=== PATIENT | male | born 1930 | race Caucasian/White ===

== ENCOUNTER 2017-04-23 11:35 | Inpatient (IN) | payer MEDICARE, MEDICAID ==
--- NOTE | 2017-04-23 12:30 | EDM.PDOC ---
ED HPI GENERAL MEDICAL PROBLEM - General Chief Complaint: Respiratory Problem Stated Complaint: MEDICAL VIA TRI Time Seen by Provider: 04/23/17 11:50 Source of Information: Reports: Patient, EMS, [facility] Records History Limitations: Reports: No Limitations - History of Present Illness INITIAL COMMENTS - FREE TEXT/NARRATIVE: 86-year-[facility] patient, full code, presents by EMS with tachycardia, intermittent hypoxia and shortness of breath. The patient himself is a poor historian and complains of no pain and thinks he is "doing okay" however the [facility] staff is concerned of increasing episodes of dyspnea, hypoxia and respiratory distress. He also has chronic atrial fibrillation but his rate is much faster than his baseline. No fevers or chills. They sent him in this morning when they thought he was looking dusky and mottled. His O2 saturations prior to leaving the [facility] are in the low to mid 80s on 3 L of nasal cannula oxygen. He looks much better on arrival to the emergency room with O2 saturations in the mid 90s on 2 L, his color looks good. He is not laboring. Onset: Unknown/Unsure Severity: Moderate Associated Symptoms: Reports: Shortness of Breath. Denies: Chest Pain, Cough, Fever/Chills, Nausea/Vomiting - Related Data Allergies Allergy/AdvReac Type Severity Reaction Status Date / Time No Known Allergies Allergy Verified 04/27/14 22:39 Home Meds: Home Meds Dorzolamide/Timolol [Cosopt 2%-0.5% Ophth Soln] 2 drop EYEBOTH BID 04/27/14 [ History] Acetaminophen [Tylenol] 650 mg PO ASDIRECTED PRN 04/23/17 [History] Albuterol/Ipratropium [DuoNeb 3.0-0.5 MG/3 ML] 1 vial INH QID 04/23/17 [History] Alum Hydrox/Mag Hydrox/Simeth [Maalox Advanced] 1 unit PO ASDIRECTED PRN [History] Aspirin 81 mg PO DAILY 04/23/17 [History] Bisacodyl [Biscolax] 10 mg RECTAL ASDIRECTED PRN 04/23/17 [History] Budesonide [Pulmicort] 1 vial INH BID 04/23/17 [History] Diltiazem HCl [Cardizem] 30 mg PO QID 04/23/17 [History] Magnesium Hydroxide [Milk of Magnesia] 30 mg PO ASDIRECTED PRN 04/23/17 [History ] Mirtazapine [Remeron] 7.5 mg PO DAILY 04/23/17 [History] Pantoprazole [ProTONIX] 40 mg PO DAILY 04/23/17 [History] Potassium Chloride [Klor-Con M20] 20 meq PO DAILY 04/23/17 [History] Sennosides [Senna] 8.6 mg PO BID 04/23/17 [History] Tamsulosin HCl 0.4 mg PO DAILY 04/23/17 [History] Warfarin [Coumadin] 2 mg PO ASDIRECTED 04/23/17 [History] Past Medical History - Past Health History Medical/Surgical History: Denies Medical/Surgical History HEENT History: Reports: Glaucoma Cardiovascular History: Reports: Afib, Heart Failure Respiratory History: Reports: COPD Gastrointestinal History: Reports: Chronic Constipation, GERD Genitourinary History: Reports: Prostate Disorder Psychiatric History: Reports: Dementia Social & Family History - Tobacco Use Smoking Status *Q: Unknown Ever Smoked Second Hand Smoke Exposure: No - Caffeine Use Caffeine Use: Reports: Coffee - Recreational Drug Use Recreational Drug Use: No ED ROS GENERAL - Review of Systems Review Of Systems: See Below Constitutional: Reports: Malaise, Weakness. Denies: Fever, Chills Respiratory: Reports: Shortness of Breath Cardiovascular: Reports: Other (Tachycardia). Denies: Chest Pain Endocrine: Reports: Fatigue GI/Abdominal: Denies: Abdominal Pain, Nausea, Vomiting Skin: Reports: Pallor Neurological: Reports: Other (Very hard of hearing) Psychiatric: Reports: No Symptoms ED EXAM, GENERAL - Physical Exam Exam: See Below Exam Limited By: No Limitations General Appearance: Alert, No Apparent Distress Eye Exam: Bilateral Eye: EOMI Head: Atraumatic Respiratory/Chest: Decreased Breath Sounds (Decreased breath sounds throughout, especially in the right base with crackles heard bilaterally but worse on the right) Cardiovascular: Tachycardia, Irregularly Irregular GI/Abdominal: Soft, Non-Tender Extremities: No: Pedal Edema Neurological: Alert, Oriented Psychiatric: Normal Affect, Normal Mood Skin Exam: Warm, Dry Course - Vital Signs Last Recorded V/S: Last Vital Signs Temp 97.3 F 04/23/17 15:38 Pulse 55 L 04/23/17 16:54 Resp 20 04/23/17 15:38 BP 95/67 04/23/17 16:54 Pulse Ox 92 L 04/23/17 15:38 - Orders/Labs/Meds Orders: Active Orders 24 hr Category Date Time Status Chest 1V Frontal [CR] Stat Exams 04/23/17 11:54 Taken Medication Orders Acetaminophen (Tylenol) 650 mg PO Q4H PRN PRN Reason: Pain (Mild 1-3)/fever Albuterol (Proventil Neb Soln) 2.5 mg NEB Q4H PRN PRN Reason: Shortness Of Breath/wheezing Last Admin: 04/23/17 17:58 Dose: 2.5 mg Albuterol/Ipratropium (Duoneb 3.0-0.5 Mg/3 Ml) 3 ml NEB QIDRT [facility] Last Admin: 04/23/17 14:41 Dose: 3 ml Aspirin (Aspirin) 81 mg PO DAILY [facility] Azithromycin (Zithromax) 500 mg PO DAILY [facility] Last Admin: 04/23/17 15:26 Dose: 500 mg Bisacodyl (Dulcolax) 5 mg PO DAILY PRN PRN Reason: Constipation Budesonide (Pulmicort) 0.5 mg INH BIDRT [facility] Diltiazem HCl (Cardizem) 30 mg PO QID [facility] Last Admin: 04/23/17 15:27 Dose: 30 mg Dorzolamide/Timolol (Cosopt 2%-0.5% Ophth Soln) 0 ml EYEBOTH BID [facility] Enoxaparin Sodium (Lovenox) 40 mg SUBCUT DAILY [facility] Sodium Chloride (Normal Saline) 1,000 mls @ 125 mls/hr IV ASDIRECTED [facility] Last Admin: 04/23/17 15:13 Dose: 125 mls/hr Ceftriaxone Sodium 1 gm/ (Sodium Chloride) 50 mls @ 100 mls/hr IV Q24H [facility] Magnesium Hydroxide (Milk Of Magnesia) 30 ml PO Q12H PRN PRN Reason: Constipation Mirtazapine (Remeron) 7.5 mg PO BEDTIME [facility] Ondansetron HCl (Zofran Odt) 4 mg PO Q6H PRN PRN Reason: Nausea able to take PO Pantoprazole Sodium (Protonix) 40 mg PO DAILY@0730 [facility] Polyethylene Glycol (Miralax) 17 gm PO DAILY PRN PRN Reason: Constipation Potassium Chloride (Klor-Con M20) 20 meq PO DAILY@0800 [facility] Prednisone (Prednisone) 20 mg PO BIDMEALS [facility] Senna (Senna) 8.6 mg PO BID [facility] Tamsulosin HCl (Flomax) 0.4 mg PO DAILY [facility] Labs: Laboratory Tests 04/23/17 04/23/17 04/23/17 Range/Units 11:55 11:55 11:55 WBC 18.5 H (4.5-11.0) K/uL RBC 3.47 L (4.30-5.90) M/uL Hgb 10.3 L (12.0-15.0) g/dL Hct 32.4 L (40.0-54.0) % MCV 93 (80-98) fL MCH 30 (27-31) pg MCHC 32 (32-36) % Plt Count 348 (150-400) K/uL Neut % (Auto) 89 H (36-66) % Lymph % (Auto) 5 L (24-44) % [place] % (Auto) 6 (2-6) % Eos % (Auto) 0 L (2-4) % Baso % (Auto) 0 (0-1) % PT (9.5-12.0) sec Puncture Site Rt brachial ABG pH 7.405 (7.350-7.450) ABG pCO2 31.1 L (35.0-42.0) mmHg ABG pO2 93.4 (75.0-100.0) mmHg ABG HCO3 19.1 L (22.0-26.0) mmol/L ABG Total CO2 17.7 L (23.0-27.0) mmol/L ABG O2 Saturation 97.3 (95.0-98.0) % ABG O2 Content 13.7 L (15.0-23.0) %vol ABG Base Excess -4.3 mm/L ABG Hemoglobin 10.3 L (13.5-18.0) g/dL ABG Oxyhemoglobin 94.5 % ABG Carboxyhemoglobin 2.5 H (0.0-1.6) % ABG Methemoglobin 0.4 % Fabricio Test Not performed O2 Delivery Device Room air Oxygen Flow Rate 2 L Sodium 138 L (140-148) mmol/L Potassium 5.1 (3.6-5.2) mmol/L Chloride 106 (100-108) mmol/L Carbon Dioxide 23 (21-32) mmol/L Anion Gap 14.1 H (5.0-14.0) mmol/L BUN 60 H D (7-18) mg/dL Creatinine 1.2 (0.8-1.3) mg/dL Est Cr Clr Drug Dosing 27.30 mL/min Estimated GFR (MDRD) 57 L (>60) Glucose 166 H (74-106) mg/dL Calcium 7.2 L (8.5-10.1) mg/dL Total Bilirubin 0.4 (0.2-1.0) mg/dL AST 13 L (15-37) U/L ALT 21 (12-78) U/L Alkaline Phosphatase 78 (46-116) U/L Troponin I < 0.017 (0.000-0.056) ng/mL Total Protein 5.2 L (6.4-8.2) g/dL Albumin 2.2 L (3.4-5.0) g/dL Globulin 3.0 (2.3-3.5) g/dL Albumin/Globulin Ratio 0.7 L (1.2-2.2) 04/23/17 Range/Units 13:27 WBC (4.5-11.0) K/uL RBC (4.30-5.90) M/uL Hgb (12.0-15.0) g/dL Hct (40.0-54.0) % MCV (80-98) fL MCH (27-31) pg MCHC (32-36) % Plt Count (150-400) K/uL Neut % (Auto) (36-66) % Lymph % (Auto) (24-44) % [place] % (Auto) (2-6) % Eos % (Auto) (2-4) % Baso % (Auto) (0-1) % PT > 100.0 H (9.5-12.0) sec Puncture Site ABG pH (7.350-7.450) ABG pCO2 (35.0-42.0) mmHg ABG pO2 (75.0-100.0) mmHg ABG HCO3 (22.0-26.0) mmol/L ABG Total CO2 (23.0-27.0) mmol/L ABG O2 Saturation (95.0-98.0) % ABG O2 Content (15.0-23.0) %vol ABG Base Excess mm/L ABG Hemoglobin (13.5-18.0) g/dL ABG Oxyhemoglobin % ABG Carboxyhemoglobin (0.0-1.6) % ABG Methemoglobin % Fabricio Test O2 Delivery Device Oxygen Flow Rate L Sodium (140-148) mmol/L Potassium (3.6-5.2) mmol/L Chloride (100-108) mmol/L Carbon Dioxide (21-32) mmol/L Anion Gap (5.0-14.0) mmol/L BUN (7-18) mg/dL Creatinine (0.8-1.3) mg/dL Est Cr Clr Drug Dosing mL/min Estimated GFR (MDRD) (>60) Glucose (74-106) mg/dL Calcium (8.5-10.1) mg/dL Total Bilirubin (0.2-1.0) mg/dL AST (15-37) U/L ALT (12-78) U/L Alkaline Phosphatase (46-116) U/L Troponin I (0.000-0.056) ng/mL Total Protein (6.4-8.2) g/dL Albumin (3.4-5.0) g/dL Globulin (2.3-3.5) g/dL Albumin/Globulin Ratio (1.2-2.2) Meds: Medications Generic Name Dose Route Start Last Admin Trade Name Freq PRN Reason Stop Dose Admin Acetaminophen 650 mg 04/23/17 14:15 Tylenol PO Q4H PRN Pain (Mild 1-3)/fever Albuterol 2.5 mg 04/23/17 14:15 04/23/17 17:58 Proventil Neb Soln NEB 2.5 mg Q4H PRN Administration Shortness Of Breath/wheezing Albuterol/Ipratropium 3 ml 04/23/17 15:00 04/23/17 14:41 Duoneb 3.0-0.5 Mg/3 Ml NEB 3 ml QIDRT [facility] Administration Aspirin 81 mg 04/24/17 09:00 Aspirin PO DAILY [facility] Azithromycin 500 mg 04/23/17 14:15 04/23/17 15:26 Zithromax PO 500 mg DAILY [facility] Administration Bisacodyl 5 mg 04/23/17 14:15 Dulcolax PO DAILY PRN Constipation Budesonide 0.5 mg 04/23/17 21:00 Pulmicort INH BIDRT [facility] Diltiazem HCl 30 mg 04/23/17 16:00 04/23/17 15:27 Cardizem PO 30 mg QID [facility] Administration Dorzolamide/Timolol 0 ml 04/23/17 21:00 Cosopt 2%-0.5% Ophth Soln EYEBOTH BID [facility] Enoxaparin Sodium 40 mg 04/24/17 09:00 Lovenox SUBCUT DAILY [facility] Sodium Chloride 1,000 mls @ 125 mls/hr 04/23/17 14:15 04/23/17 15:13 Normal Saline IV 125 mls/hr ASDIRECTED [facility] Administration Ceftriaxone Sodium 1 gm/ 50 mls @ 100 mls/hr 04/24/17 13:30 Sodium Chloride IV Q24H [facility] Magnesium Hydroxide 30 ml 04/23/17 14:15 Milk Of Magnesia PO Q12H PRN Constipation Mirtazapine 7.5 mg 04/23/17 21:00 Remeron PO BEDTIME [facility] Ondansetron HCl 4 mg 04/23/17 14:15 Zofran Odt PO Q6H PRN Nausea able to take PO Pantoprazole Sodium 40 mg 04/24/17 07:30 Protonix PO DAILY@0730 [facility] Polyethylene Glycol 17 gm 04/23/17 14:15 Miralax PO DAILY PRN Constipation Potassium Chloride 20 meq 04/24/17 08:00 Klor-Con M20 PO DAILY@0800 [facility] Prednisone 20 mg 04/24/17 08:00 Prednisone PO BIDMEALS [facility] Senna 8.6 mg 04/23/17 21:00 Senna PO BID [facility] Tamsulosin HCl 0.4 mg 04/24/17 09:00 Flomax PO DAILY [facility] Discontinued Medications Generic Name Dose Route Start Last Admin Trade Name Freq PRN Reason Stop Dose Admin Ceftriaxone Sodium 1 gm/ 50 mls @ 100 mls/hr 04/23/17 13:30 04/23/17 13:40 Sodium Chloride IV 100 mls/hr Q24H [facility] Administration Sodium Chloride 500 mls @ 999 mls/hr 04/23/17 13:30 04/23/17 13:31 Normal Saline IV 04/23/17 14:01 999 mls/hr ASDIRECTED [facility] Administration Methylprednisolone Sodium Succinate 125 mg 04/23/17 15:00 04/23/17 15:27 Solu-Medrol IVPUSH 04/23/17 15:01 125 mg ONETIME ONE Administration Phytonadione 5 mg 04/23/17 15:00 04/23/17 15:27 Aquamephyton PO 04/23/17 15:01 5 mg ONETIME ONE Administration - Re-Assessments/Exams Free Text/Narrative Re-Assessment/Exam: 04/23/17 12:35 quality assurance monitor showed atrial fibrillation with a rapid ventricular response. O2 saturations were 94-96% on 2 L of nasal cannula oxygen. ABGs were drawn on 2 L, CBC CMP and troponin were also obtained. A 1 view chest x-ray was obtained and showed chronic basilar infiltrates or scarring and cardiomegaly. Underlying infiltrates are very possible. 04/23/17 13:03 White count was 18,000, troponin was 0. Rest of his labs were generally unremarkable. ABGs showed a normal pH. There was no CO2 retention. I discussed his condition with Dr. Pineda, the hospitalist service and evaluate the patient for admission for a COPD exacerbation. Departure - Departure Time of Disposition: 14:26 Disposition: Admitted As Inpatient 64 Condition: Fair Clinical Impression: COPD with exacerbation - Discharge Information - My Orders Last 24 Hours: My Active Orders 04/23/17 11:54 Chest 1V Frontal [CR] Stat - Assessment/Plan Last 24 Hours: My Active Orders 04/23/17 11:54 Chest 1V Frontal [CR] Stat
[2017-04-23] MEDS ORDERED: Sodium Chloride 0.9% 500 ML IV SCH (13:30)
[2017-04-23] MEDS ORDERED: cefTRIAXone 1 GM in Sodium Chloride 0.9% 50 ML IV SCH (13:30)
--- NOTE | 2017-04-23 13:51 | PCM.HP ---
H&P History of Present Illness - General Date of Service: 04/23/17 Admit Problem/Dx: Admission Diagnosis/Problem Admission Diagnosis/Problem Bronchitis Source of Information: Patient, Shelter Records, Provider History Limitations: Reports: No Limitations - History of Present Illness Initial Comments - Free Text/Narative: Gómez presents to the emergency room today from a local half-way. [facility] this morning noted that he was skipped, tachycardic, hypotensive and appeared cyanotic. An ambulance was summoned and was brought to the emergency room for evaluation. He tells me that he feels well now and does not have any concerns at this time. He recalls not feeling very good this morning but cannot be more specific than that he did not feel good. He does recall that his breathing was short at the time. He does admit that he's been doing some coughing and has a loose but nonproductive cough. He has not had any difficulties with chest pain or abdominal pain. Appetite has been decreased but this is a chronic issue. Bowels have been moving normally. He doesn't think he' s been having any fevers. He reports his strength is at baseline which is weak and has a difficult time getting around. He was recently treated for suspected pneumonia with levofloxacin and 5 days of prednisone. Workup in the emergency room revealed initially a tachycardia which appears to be atrial fibrillation has now slowed down to the upper limits of normal. His hypoxia has corrected with 2 L of oxygen which he normally uses at home. White count is elevated. Chest x-ray is difficult to interpret but bronchitis is suspected. He will be admitted for further management. - Related Data Allergies/Adverse Reactions: Allergies Allergy/AdvReac Type Severity Reaction Status Date / Time No Known Allergies Allergy Verified 04/27/14 22:39 Home Medications: Home Meds Dorzolamide/Timolol [Cosopt 2%-0.5% Ophth Soln] 2 drop EYEBOTH BID 04/27/14 [ History] Acetaminophen [Tylenol] 650 mg PO ASDIRECTED PRN 04/23/17 [History] Albuterol/Ipratropium [DuoNeb 3.0-0.5 MG/3 ML] 1 vial INH QID 04/23/17 [History] Alum Hydrox/Mag Hydrox/Simeth [Maalox Advanced] 1 unit PO ASDIRECTED PRN [History] Aspirin 81 mg PO DAILY 04/23/17 [History] Bisacodyl [Biscolax] 10 mg RECTAL ASDIRECTED PRN 04/23/17 [History] Budesonide [Pulmicort] 1 vial INH BID 04/23/17 [History] Diltiazem HCl [Cardizem] 30 mg PO QID 04/23/17 [History] Magnesium Hydroxide [Milk of Magnesia] 30 mg PO ASDIRECTED PRN 04/23/17 [History ] Mirtazapine [Remeron] 7.5 mg PO DAILY 04/23/17 [History] Pantoprazole [ProTONIX] 40 mg PO DAILY 04/23/17 [History] Potassium Chloride [Klor-Con M20] 20 meq PO DAILY 04/23/17 [History] Sennosides [Senna] 8.6 mg PO BID 04/23/17 [History] Tamsulosin HCl 0.4 mg PO DAILY 04/23/17 [History] Warfarin [Coumadin] 2 mg PO ASDIRECTED 04/23/17 [History] Past Medical History - Past Health History Medical/Surgical History: Denies Medical/Surgical History HEENT History: Reports: Glaucoma Cardiovascular History: Reports: Afib, Heart Failure Respiratory History: Reports: COPD Gastrointestinal History: Reports: Chronic Constipation, GERD Genitourinary History: Reports: Prostate Disorder Psychiatric History: Reports: Dementia Social & Family History - Family History Cardiac: Denies: CAD - Tobacco Use Smoking Status *Q: Unknown Ever Smoked Second Hand Smoke Exposure: No - Caffeine Use Caffeine Use: Reports: Coffee - Recreational Drug Use Recreational Drug Use: No H&P Review of Systems - Review of Systems: Review Of Systems: See Below Free Text/Narrative: A complete 12 point review of systems was obtained. Pertinent positives and negatives are noted in the history of present illness. All other systems were reviewed and were negative except as noted. Exam - Exam Exam: See Below - Vital Signs Vital Signs: Last Vital Signs Temp 36.0 C 04/23/17 11:47 Pulse 140 H 04/23/17 11:47 Resp 16 04/23/17 11:47 BP 96/65 04/23/17 11:47 Pulse Ox 94 L 04/23/17 11:47 Weight: 49.442 kg - Exam Quality Assessment: Supplemental Oxygen General: Alert, Cooperative, Mild Distress, Other (Very thin and malnourished). No: Oriented HEENT: Conjunctiva Clear. No: Mucosa Moist & [place] (dry), Scleral Icterus Neck: Supple, Trachea Midline. No: Lymphadenopathy, Thyromegaly Lungs: Decreased Breath Sounds (Both bases), Rales (Rare right lung base), Other (Poor air movement). No: Wheezing Cardiovascular: Irregular Rhythm, Tachycardia. No: Systolic Murmur GI/Abdominal Exam: Normal Bowel Sounds, Soft, Non-Tender, No Distention, No Mass Back Exam: Normal Inspection, Full Range of Motion Extremities: No Pedal Edema. No: Increased Warmth Peripheral Pulses: 2+: Dorsalis Pedis (L), Dorsalis Pedis (R) Skin: Warm, Dry, Intact Neuro Extensive - Mental Status: Alert, Nl Response to Commands. No: Oriented x3 Neuro Extensive - Motor, Sensory, Reflexes: CN II-XII Intact. No: Dysarthria, Abnormal Motor, Tremor Psychiatric: Alert, Normal Affect - Patient Data Lab Results Last 24 hrs: Laboratory Results - last 24 hr 04/23/17 04/23/17 04/23/17 Range/Units 11:55 11:55 11:55 WBC 18.5 H (4.5-11.0) K/uL RBC 3.47 L (4.30-5.90) M/uL Hgb 10.3 L (12.0-15.0) g/dL Hct 32.4 L (40.0-54.0) % MCV 93 (80-98) fL MCH 30 (27-31) pg MCHC 32 (32-36) % Plt Count 348 (150-400) K/uL Neut % (Auto) 89 H (36-66) % Lymph % (Auto) 5 L (24-44) % [place] % (Auto) 6 (2-6) % Eos % (Auto) 0 L (2-4) % Baso % (Auto) 0 (0-1) % Puncture Site Rt brachial ABG pH 7.405 (7.350-7.450) ABG pCO2 31.1 L (35.0-42.0) mmHg ABG pO2 93.4 (75.0-100.0) mmHg ABG HCO3 19.1 L (22.0-26.0) mmol/L ABG Total CO2 17.7 L (23.0-27.0) mmol/L ABG O2 Saturation 97.3 (95.0-98.0) % ABG O2 Content 13.7 L (15.0-23.0) %vol ABG Base Excess -4.3 mm/L ABG Hemoglobin 10.3 L (13.5-18.0) g/dL ABG Oxyhemoglobin 94.5 % ABG Carboxyhemoglobin 2.5 H (0.0-1.6) % ABG Methemoglobin 0.4 % Fabricio Test Not performed O2 Delivery Device Room air Oxygen Flow Rate 2 L Sodium 138 L (140-148) mmol/L Potassium 5.1 (3.6-5.2) mmol/L Chloride 106 (100-108) mmol/L Carbon Dioxide 23 (21-32) mmol/L Anion Gap 14.1 H (5.0-14.0) mmol/L BUN 60 H D (7-18) mg/dL Creatinine 1.2 (0.8-1.3) mg/dL Est Cr Clr Drug Dosing 27.30 mL/min Estimated GFR (MDRD) 57 L (>60) Glucose 166 H (74-106) mg/dL Calcium 7.2 L (8.5-10.1) mg/dL Total Bilirubin 0.4 (0.2-1.0) mg/dL AST 13 L (15-37) U/L ALT 21 (12-78) U/L Alkaline Phosphatase 78 (46-116) U/L Troponin I < 0.017 (0.000-0.056) ng/mL Total Protein 5.2 L (6.4-8.2) g/dL Albumin 2.2 L (3.4-5.0) g/dL Globulin 3.0 (2.3-3.5) g/dL Albumin/Globulin Ratio 0.7 L (1.2-2.2) Result Diagrams: 04/23/17 11:55 04/23/17 11:55 Imaging Impressions Last 24 hrs: Chest x-ray - images personally reviewed and compared to chest x-ray from February 2017 - he appears to have 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 He has a hiatal hernia on the left. No definite mass or infiltrate. No effusion. *Q Meaningful Use (ADM) - VTE *Q VTE Criteria *Q: - VTE Risk Assess *Q Each Risk Factor Represents 1 Point: Congestive Heart Failure, Less than 1 Month , Serious Lung Disease Including Pneumonia, Less than 1 Month, Abnormal Pulmonary Function (COPD) Total Score 1 Point Risk Factors: 3 Each Risk Factor Represents 2 Points: None Total Score 2 Point Risk Factors: 0 Each Risk Factor Represents 3 Points: Age 75 Years or Greater Total Score 3 Point Risk Factors: 3 Each Risk Factor Represents 5 Points: None Total Score 5 Point Risk Factors: 0 Venous Thromboembolism Risk Factor Score *Q: 6 - Stroke *Q Stroke Criteria *Q: - AMI *Q AMI Criteria *Q: - Problem List (1) Acute bronchitis SNOMED Code(s): 10663568 ICD Code: J20.9 - ACUTE BRONCHITIS, UNSPECIFIED Status: Acute Current Visit: Yes Qualifiers: Bronchitis organism: unspecified organism Qualified Code(s): J20.9 - Acute bronchitis, unspecified (2) COPD with exacerbation SNOMED Code(s): 535361350, 745434311 ICD Code: J44.1 - CHRONIC OBSTRUCTIVE PULMONARY DISEASE W (ACUTE) EXACERBATION Status: Acute Current Visit: Yes (3) Atrial fibrillation with rapid ventricular response SNOMED Code(s): 887815099305178 ICD Code: I48.91 - UNSPECIFIED ATRIAL FIBRILLATION Status: Acute Current Visit: Yes (4) Stage III chronic kidney disease SNOMED Code(s): 569772038 ICD Code: N18.3 - CHRONIC KIDNEY DISEASE, STAGE 3 (MODERATE) Status: Acute Current Visit: Yes (5) Alzheimer's dementia without behavioral disturbance SNOMED Code(s): 61274899 ICD Code: G30.9 - ALZHEIMER'S DISEASE, UNSPECIFIED; F02.80 - DEMENTIA IN OTH DISEASES CLASSD ELSWHR W/O BEHAVRL DISTURB Status: Acute Current Visit: Yes Qualifiers: Alzheimer's disease onset: late-onset Qualified Code(s): G30.1 - Alzheimer' s disease with late onset; F02.80 - Dementia in other diseases classified elsewhere without behavioral disturbance (6) Supratherapeutic INR SNOMED Code(s): 037004322, 483258053 ICD Code: R79.1 - ABNORMAL COAGULATION PROFILE Status: Acute Current Visit: Yes Problem List Initiated/Reviewed/Updated: Yes Orders Last 24hrs: Active Orders 24 hr Category Date Time Status Patient Status Manage Transfer [TRANSFER] Routine ADT 04/23/17 13:34 Ordered Chest 1V Frontal [CR] Stat Exams 04/23/17 11:54 Taken INR,PT,PROTHROMBIN TIME [COAG] Urgent Lab 04/23/17 13:27 Ordered Sodium Chloride 0.9% [Normal Saline] 500 ml Med 04/23/17 13:30 Active IV ASDIRECTED cefTRIAXone [Rocephin] 1 gm Med 04/23/17 13:30 Active Sodium Chloride 0.9% [Normal Saline] 50 ml IV Q24H Resuscitation Status Routine Resus Stat 04/23/17 13:35 Ordered Medication Orders Ceftriaxone Sodium 1 gm/ (Sodium Chloride) 50 mls @ 100 mls/hr IV Q24H HELIO Last Admin: 04/23/17 13:40 Dose: 100 mls/hr Sodium Chloride (Normal Saline) 500 mls @ 999 mls/hr IV ASDIRECTED HELIO Stop: 04/23/17 14:01 Last Admin: 04/23/17 13:31 Dose: 999 mls/hr Assessment/Plan Comment:: Assessment and plan - Probable acute bronchitis with acute COPD exacerbation - uses continuous oxygen at home. No CO2 retention on blood gases. Poor air movement, productive cough and increased shortness of breath from baseline. He has had recent treatment with levofloxacin. No respiratory distress at this time. -Ceftriaxone and azithromycin -Solu-Medrol 1 today -Twice daily prednisone starting tomorrow -Scheduled and as needed nebulizers -Continue Pulmicort -Supplement oxygen Atrial fibrillation with rapid ventricular response - rate has slowed nicely in the emergency room without intervention. Suspect worsening because of missed morning dose of medication and pulmonary disease. -Continue 4 times a day diltiazem -Cardiac monitoring Super therapeutic INR - significantly elevated level and unable to calculate INR. -5 mg of by mouth vitamin K -Repeat INR in the morning -Hold warfarin Stage III chronic kidney disease - kidney function at baseline at this time. Alzheimer's dementia without behavioral disturbance - daughter reports intermittent difficulties with forgetfulness but in general does pretty well yet. -Melatonin at bedtime Maintenance issues - - DVT prophylaxis - warfarin - GI prophylaxis - PPI - Nutrition - low sodium diet - Mejia catheter - not indicated CODE STATUS - discussed with his daughter Mariella who is his decision maker. She requests that no CPR be done but a short period of intubation would be okay for reversible conditions. Admission justification - This patient will be admitted for inpatient services and is medically appropriate meeting medical necessity for inpatient admission as outlined in my documentation. I reasonably expect the patient will require inpatient services that span a period time over 2 midnights. I reasonably expect this patient to be discharged or transferred within 96 hours after admission to the [facility]. Disposition - anticipate discharge back to the half-way after the hospital stay Primary care physician - Dr Aron Pineda M.D.
[2017-04-23] MEDS ORDERED: Polyethylene Glycol 3350 Powder 17 GM Packet PO PRN (14:15)
[2017-04-23] MEDS ORDERED: Acetaminophen 325 MG Tab PO PRN (14:15)
[2017-04-23] MEDS ORDERED: Ondansetron 4 MG Tab.DIS PO PRN (14:15)
[2017-04-23] MEDS ORDERED: Bisacodyl 5 MG Tab PO PRN (14:15)
[2017-04-23] MEDS: Albuterol/Ipratropium 3.0-0.5 MG/3 ML Neb Soln NEB SCH ×2 (14:41→21:34)
[2017-04-23] MEDS ORDERED: Phytonadione ORAL 5mg/5ml Soln Simple Syrup U/D PO ONE (15:00)
[2017-04-23] MEDS ORDERED: methylPREDNISolone Sodium Succinate 125 MG/2 ML SDV IVPUSH ONE (15:00)
[2017-04-23] MEDS: Sodium Chloride 0.9% 1,000 ML IV SCH ×2 (15:13→22:39)
[2017-04-23] MEDS: Azithromycin 250 MG Tab PO SCH (15:26)
[2017-04-23] MEDS: Diltiazem IR 30 MG Tab PO SCH ×2 (15:27→21:35)
[2017-04-23] MEDS: Albuterol 0.083% 2.5 MG/3 ML Neb Soln NEB PRN (17:58)
[2017-04-23] MEDS: Dorzolamide/Timolol 2%-0.5% Ophth Soln 10 ML Bottle EYEBOTH SCH (21:34)
[2017-04-23] MEDS: Budesonide 0.5 MG/2 ML Neb Susp INH SCH (21:34)
[2017-04-23] MEDS: Mirtazapine 15 MG Tab PO SCH (21:35)
[2017-04-23] MEDS: Sennosides 8.6 MG Tab PO SCH (21:35)
[2017-04-24] MEDS: Albuterol 0.083% 2.5 MG/3 ML Neb Soln NEB PRN (03:32)
[2017-04-24] MEDS ORDERED: Sodium Chloride 0.9% 500 ML IV ONE ×4 (03:45→21:48)
[2017-04-24] MEDS: Diltiazem IR 30 MG Tab PO SCH ×2 (05:24→14:35)
[2017-04-24] MEDS ORDERED: Phytonadione 5 MG in Sodium Chloride 0.9% 50 ML IV ONE ×2 (06:30→08:00)
[2017-04-24] MEDS: Budesonide 0.5 MG/2 ML Neb Susp INH SCH ×2 (07:23→20:56)
[2017-04-24] MEDS: Albuterol/Ipratropium 3.0-0.5 MG/3 ML Neb Soln NEB SCH ×4 (07:23→20:52)
[2017-04-24] MEDS: Sodium Chloride 0.9% 1,000 ML IV SCH ×2 (07:48→18:44)
[2017-04-24] MEDS: predniSONE 20 MG Tab PO SCH ×2 (08:13→16:42)
[2017-04-24] MEDS: Potassium Chloride 20 MEQ Tab.ER PO SCH (08:13)
[2017-04-24] MEDS: Pantoprazole 40 MG Tab.CR PO SCH (08:13)
[2017-04-24] MEDS: Tamsulosin 0.4 MG Cap.ER PO SCH (08:14)
[2017-04-24] MEDS: Aspirin 81 MG Tab.Chew PO SCH (08:14)
[2017-04-24] MEDS: Azithromycin 250 MG Tab PO SCH (08:14)
[2017-04-24] MEDS: Dorzolamide/Timolol 2%-0.5% Ophth Soln 10 ML Bottle EYEBOTH SCH ×2 (08:16→20:52)
[2017-04-24] MEDS ORDERED: Enoxaparin 40 MG/0.4 ML Syringe SUBCUT SCH (09:00)
--- NOTE | 2017-04-24 09:18 | CR ---
Chest 1V Frontal INDICATION: hypoxia FINDINGS: Comparison 04/30/2014. Heart size within normal limits for portable AP technique. Hyperinfla tion. Prominence of the central pulmonary arteries. Patchy infiltrate in the left lower lobe concerni ng for pneumonia. Stable blunting of the costophrenic angles. Recommend follow-up chest x-ray in 4-6 weeks.
[2017-04-24] MEDS: Sennosides 8.6 MG Tab PO SCH ×2 (10:40→20:53)
--- NOTE | 2017-04-24 13:14 | PCM.PN ---
- General Info Date of Service: 04/24/17 Functional Status: Reports: Pain Controlled, Tolerating Diet, Ambulating - Review of Systems General: Reports: Weakness. Denies: Fever, Chills Pulmonary: Reports: Shortness of Breath, Cough. Denies: Pleuritic Chest Pain, Hemoptysis Cardiovascular: Reports: Dyspnea on Exertion Gastrointestinal: Reports: No Symptoms Psychiatric: Reports: Confusion Systems Review Comment:: Mr. Truong has done fairly well from a respiratory standpoint since admission, saturations have been adequate. He has had some intermittent difficulty with hypotension, likely secondary to medication effect. There is no evidence of active sepsis at the present time. Heart rate has been under better control since admission and he has remained afebrile. - Patient Data Vitals - Most Recent: Last Vital Signs Temp 96.8 F 04/24/17 11:00 Pulse 108 H 04/24/17 11:00 Resp 18 04/24/17 11:00 BP 83/52 L 04/24/17 11:00 Pulse Ox 96 04/24/17 11:00 Weight - Most Recent: 115 lb 8.003 oz I&O - Last 24 Hours: Intake & Output 04/23/17 04/24/17 04/24/17 22:59 06:59 14:59 Intake Total 1075 1820 360 Output Total 350 700 300 Balance 725 1120 60 Lab Results Last 24 Hours: Laboratory Results - last 24 hr 04/24/17 04/24/17 04/24/17 Range/Units 05:11 05:11 05:53 WBC 15.6 H (4.5-11.0) K/uL RBC 3.62 L (4.30-5.90) M/uL Hgb 10.4 L (12.0-15.0) g/dL Hct 34.1 L (40.0-54.0) % MCV 94 (80-98) fL MCH 29 (27-31) pg MCHC 31 L (32-36) % Plt Count 356 (150-400) K/uL PT > 100.0 H (9.5-12.0) sec INR (0.80-1.20) Sodium 140 (140-148) mmol/L Potassium 4.8 (3.6-5.2) mmol/L Chloride 109 H (100-108) mmol/L Carbon Dioxide 23 (21-32) mmol/L Anion Gap 12.8 (5.0-14.0) mmol/L BUN 54 H (7-18) mg/dL Creatinine 1.2 (0.8-1.3) mg/dL Est Cr Clr Drug Dosing 31.53 mL/min Estimated GFR (MDRD) 57 L (>60) Glucose 162 H (74-106) mg/dL Calcium 7.6 L (8.5-10.1) mg/dL Med Orders - Current: Current Medications Acetaminophen (Tylenol) 650 mg PO Q4H PRN PRN Reason: Pain (Mild 1-3)/fever Albuterol (Proventil Neb Soln) 2.5 mg NEB Q4H PRN PRN Reason: Shortness Of Breath/wheezing Last Admin: 04/24/17 03:32 Dose: 2.5 mg Albuterol/Ipratropium (Duoneb 3.0-0.5 Mg/3 Ml) 3 ml NEB QIDRT [facility] Last Admin: 04/24/17 10:49 Dose: 3 ml Aspirin (Aspirin) 81 mg PO DAILY [facility] Last Admin: 04/24/17 08:14 Dose: 81 mg Azithromycin (Zithromax) 500 mg PO DAILY [facility] Last Admin: 04/24/17 08:14 Dose: 500 mg Bisacodyl (Dulcolax) 5 mg PO DAILY PRN PRN Reason: Constipation Budesonide (Pulmicort) 0.5 mg INH BIDRT [facility] Last Admin: 04/24/17 07:23 Dose: 0.5 mg Dorzolamide/Timolol (Cosopt 2%-0.5% Ophth Soln) 0 ml EYEBOTH BID [facility] Last Admin: 04/24/17 08:16 Dose: 1 drop Enoxaparin Sodium (Lovenox) 40 mg SUBCUT DAILY [facility] Last Admin: 04/24/17 10:40 Dose: 40 mg Sodium Chloride (Normal Saline) 1,000 mls @ 125 mls/hr IV ASDIRECTED [facility] Last Admin: 04/24/17 07:48 Dose: 125 mls/hr Ceftriaxone Sodium 1 gm/ (Sodium Chloride) 50 mls @ 100 mls/hr IV Q24H [facility] Sodium Chloride (Normal Saline) 500 mls @ 250 mls/hr IV .BOLUS ONE Stop: 04/24/17 14:10 Magnesium Hydroxide (Milk Of Magnesia) 30 ml PO Q12H PRN PRN Reason: Constipation Mirtazapine (Remeron) 7.5 mg PO BEDTIME [facility] Last Admin: 04/23/17 21:35 Dose: 7.5 mg Ondansetron HCl (Zofran Odt) 4 mg PO Q6H PRN PRN Reason: Nausea able to take PO Pantoprazole Sodium (Protonix) 40 mg PO DAILY@0730 [facility] Last Admin: 04/24/17 08:13 Dose: 40 mg Polyethylene Glycol (Miralax) 17 gm PO DAILY PRN PRN Reason: Constipation Potassium Chloride (Klor-Con M20) 20 meq PO DAILY@0800 [facility] Last Admin: 04/24/17 08:13 Dose: 20 meq Prednisone (Prednisone) 20 mg PO BIDMEALS [facility] Last Admin: 04/24/17 08:13 Dose: 20 mg Senna (Senna) 8.6 mg PO BID [facility] Last Admin: 04/24/17 10:40 Dose: 8.6 mg Tamsulosin HCl (Flomax) 0.4 mg PO DAILY [facility] Last Admin: 04/24/17 08:14 Dose: 0.4 mg Discontinued Medications Diltiazem HCl (Cardizem) 30 mg PO QID [facility] Last Admin: 04/24/17 05:24 Dose: 30 mg Ceftriaxone Sodium 1 gm/ (Sodium Chloride) 50 mls @ 100 mls/hr IV Q24H [facility] Last Admin: 04/23/17 13:40 Dose: 100 mls/hr Sodium Chloride (Normal Saline) 500 mls @ 999 mls/hr IV ASDIRECTED [facility] Stop: 04/23/17 14:01 Last Admin: 04/23/17 13:31 Dose: 999 mls/hr Sodium Chloride (Normal Saline) 500 mls @ 500 mls/hr IV .BOLUS ONE Stop: 04/24/17 04:44 Last Admin: 04/24/17 03:45 Dose: 500 mls/hr Phytonadione 5 mg/ Sodium (Chloride) 50.5 mls @ 100 mls/hr IV NOW ONE Stop: 04/24/17 07:00 Phytonadione 5 mg/ Sodium (Chloride) 50.5 mls @ 100 mls/hr IV ONETIME ONE Stop: 04/24/17 08:30 Last Admin: 04/24/17 07:48 Dose: 100 mls/hr Methylprednisolone Sodium Succinate (Solu-Medrol) 125 mg IVPUSH ONETIME ONE Stop: 04/23/17 15:01 Last Admin: 04/23/17 15:27 Dose: 125 mg Phytonadione (Aquamephyton) 5 mg PO ONETIME ONE Stop: 04/23/17 15:01 Last Admin: 04/23/17 15:27 Dose: 5 mg - Exam General: Alert, Cooperative, Mild Distress Lungs: Decreased Breath Sounds. No: Crackles, Rales, Rhonchi, Rub, Wheezing Cardiovascular: Regular Rate, No Murmurs, Irregular Rhythm GI/Abdominal Exam: Normal Bowel Sounds, Soft, Non-Tender, No Distention Extremities: Non-Tender, No Pedal Edema Skin: Warm, Dry, Intact - Problem List Review Problem List Initiated/Reviewed/Updated: Yes - My Orders Last 24 Hours: My Active Orders 04/24/17 12:11 Sodium Chloride 0.9% [Normal Saline] 500 ml IV .BOLUS 04/25/17 05:00 BASIC METABOLIC PANEL,BMP [CHEM] Timed CBC WITH AUTO DIFF [HEME] Timed MAGNESIUM [CHEM] Timed - Plan Plan:: Assessment and plan - Probable acute bronchitis with acute COPD exacerbation - uses continuous oxygen at home. Improved from admission, saturations have been adequate with current supplemental oxygen -Ceftriaxone and azithromycin -Twice daily prednisone -Scheduled and as needed nebulizers -Continue Pulmicort -Supplement oxygen Atrial fibrillation with rapid ventricular response - rate control has been adequate but will need to hold diltiazem because of hypotension. -Hold diltiazem -Cardiac monitoring Hypotension-likely that at least some component of this is secondary to medical therapy. -IV fluid bolus -Hold diltiazem -Continue IV fluids until tomorrow a.m. Super therapeutic INR - INR remains elevated today -5 mg of by mouth vitamin K -Repeat INR in the morning -Hold warfarin Stage III chronic kidney disease - kidney function at baseline at this time. Alzheimer's dementia without behavioral disturbance - daughter reports intermittent difficulties with forgetfulness but in general does pretty well yet. -Melatonin at bedtime Maintenance issues - - DVT prophylaxis - warfarin - GI prophylaxis - PPI - Nutrition - low sodium diet - Mejia catheter - not indicated CODE STATUS - discussed with his daughter Mariella who is his decision maker. She requests that no CPR be done but a short period of intubation would be okay for reversible conditions. Admission justification - This patient will be admitted for inpatient services and is medically appropriate meeting medical necessity for inpatient admission as outlined in my documentation. I reasonably expect the patient will require inpatient services that span a period time over 2 midnights. I reasonably expect this patient to be discharged or transferred within 96 hours after admission to the [facility]. Disposition - anticipate discharge back to the half-way after the hospital stay Primary care physician - Dr Sharp
[2017-04-24] MEDS: Magnesium Hydroxide 400 MG/5 ML Susp 30 ML Cup PO PRN (13:59)
[2017-04-24] MEDS: cefTRIAXone 1 GM in Sodium Chloride 0.9% 50 ML IV SCH (13:59)
[2017-04-24] MEDS ORDERED: Haloperidol Lactate 5 MG/ML SDV IVPUSH PRN (18:07)
[2017-04-24] MEDS: Divalproex Sodium Delayed-Release 250 MG Tab.CR PO SCH (19:18)
[2017-04-24] MEDS ORDERED: Digoxin 500 MCG/2 ML Amp IVPUSH STA (19:36)
[2017-04-24] MEDS: Mirtazapine 15 MG Tab PO SCH (20:53)
[2017-04-24] MEDS: Melatonin 3 MG Tab PO SCH (20:56)
[2017-04-25] MEDS ORDERED: Sodium Chloride 0.9% 500 ML IV ONE (03:19)
[2017-04-25] MEDS: Sodium Chloride 0.9% 1,000 ML IV SCH (07:15)
[2017-04-25] MEDS: Budesonide 0.5 MG/2 ML Neb Susp INH SCH ×3 (07:19→20:58)
[2017-04-25] MEDS: Albuterol/Ipratropium 3.0-0.5 MG/3 ML Neb Soln NEB SCH ×5 (07:19→20:58)
[2017-04-25] MEDS: Pantoprazole 40 MG Tab.CR PO SCH (08:21)
[2017-04-25] MEDS: Azithromycin 250 MG Tab PO SCH (08:21)
[2017-04-25] MEDS: Divalproex Sodium Delayed-Release 250 MG Tab.CR PO SCH ×2 (08:21→17:16)
[2017-04-25] MEDS: Potassium Chloride 20 MEQ Tab.ER PO SCH (08:22)
[2017-04-25] MEDS: Tamsulosin 0.4 MG Cap.ER PO SCH (08:22)
[2017-04-25] MEDS: predniSONE 20 MG Tab PO SCH (08:22)
[2017-04-25] MEDS: Sennosides 8.6 MG Tab PO SCH ×2 (08:22→20:20)
[2017-04-25] MEDS: Aspirin 81 MG Tab.Chew PO SCH (08:23)
[2017-04-25] MEDS: Dorzolamide/Timolol 2%-0.5% Ophth Soln 10 ML Bottle EYEBOTH SCH ×2 (08:23→20:15)
[2017-04-25] MEDS ORDERED: Warfarin 5 MG Tab PO ONE (10:00)
[2017-04-25] MEDS ORDERED: Sodium Chloride 0.9% 250 ML IV ONE (13:46)
[2017-04-25] MEDS ORDERED: Digoxin 500 MCG/2 ML Amp IVPUSH ONE (14:30)
--- NOTE | 2017-04-25 14:34 | PCM.PN ---
- General Info Date of Service: 04/25/17 Functional Status: Reports: Tolerating Diet - Review of Systems General: Reports: Weakness. Denies: Fever, Chills Pulmonary: Reports: No Symptoms Cardiovascular: Reports: No Symptoms Gastrointestinal: Reports: No Symptoms Systems Review Comment:: Mr. Truong has continued to have intermittent episodes of hypotension over the past 24 hours, low blood pressure has responded to IV fluid boluses. Heart rate has been under better control, he was given IV dig yesterday and again this afternoon. He reports that he feels well and denies significant symptoms of shortness of breath. He has remained afebrile, white count is elevated but this is likely secondary to glucocorticoid therapy. - Patient Data Vitals - Most Recent: Last Vital Signs Temp 97 F 04/25/17 11:17 Pulse 57 L 04/25/17 11:17 Resp 16 04/25/17 11:17 BP 95/52 L 04/25/17 11:17 Pulse Ox 98 04/25/17 07:41 Weight - Most Recent: 115 lb 8.003 oz I&O - Last 24 Hours: Intake & Output 04/24/17 04/25/17 04/25/17 22:59 06:59 14:59 Intake Total 1625 1970 120 Output Total 200 300 Balance 1425 1970 -180 Lab Results Last 24 Hours: Laboratory Results - last 24 hr 04/25/17 04/25/17 04/25/17 Range/Units 04:50 04:50 04:50 WBC 19.8 H (4.5-11.0) K/uL RBC 3.41 L (4.30-5.90) M/uL Hgb 10.1 L (12.0-15.0) g/dL Hct 32.2 L (40.0-54.0) % MCV 94 (80-98) fL MCH 30 (27-31) pg MCHC 31 L (32-36) % Plt Count 308 (150-400) K/uL Neut % (Auto) 88 H (36-66) % Lymph % (Auto) 5 L (24-44) % [place] % (Auto) 7 H (2-6) % Eos % (Auto) 0 L (2-4) % Baso % (Auto) 0 (0-1) % PT 13.4 H (9.5-12.0) sec INR 1.24 H (0.80-1.20) Sodium 138 L (140-148) mmol/L Potassium 5.0 (3.6-5.2) mmol/L Chloride 108 (100-108) mmol/L Carbon Dioxide 24 (21-32) mmol/L Anion Gap 11.0 (5.0-14.0) mmol/L BUN 45 H (7-18) mg/dL Creatinine 0.9 (0.8-1.3) mg/dL Est Cr Clr Drug Dosing 42.04 mL/min Estimated GFR (MDRD) > 60 (>60) Glucose 153 H (74-106) mg/dL Calcium 7.3 L (8.5-10.1) mg/dL Magnesium 2.4 (1.8-2.4) mg/dL Med Orders - Current: Current Medications Acetaminophen (Tylenol) 650 mg PO Q4H PRN PRN Reason: Pain (Mild 1-3)/fever Albuterol (Proventil Neb Soln) 2.5 mg NEB Q4H PRN PRN Reason: Shortness Of Breath/wheezing Last Admin: 04/24/17 03:32 Dose: 2.5 mg Albuterol/Ipratropium (Duoneb 3.0-0.5 Mg/3 Ml) 3 ml NEB QIDRT [facility] Last Admin: 04/25/17 10:59 Dose: 3 ml Aspirin (Aspirin) 81 mg PO DAILY [facility] Last Admin: 04/25/17 08:23 Dose: 81 mg Azithromycin (Zithromax) 500 mg PO DAILY [facility] Last Admin: 04/25/17 08:21 Dose: 500 mg Bisacodyl (Dulcolax) 5 mg PO DAILY PRN PRN Reason: Constipation Budesonide (Pulmicort) 0.5 mg INH BIDRT [facility] Last Admin: 04/25/17 07:19 Dose: 0.5 mg Digoxin (Lanoxin) 250 mcg IVPUSH ONETIME ONE Stop: 04/25/17 14:31 Divalproex Sodium (Divalproex Sodium) 250 mg PO BIDMEALS [facility] Last Admin: 04/25/17 08:21 Dose: 250 mg Dorzolamide/Timolol (Cosopt 2%-0.5% Ophth Soln) 0 ml EYEBOTH BID [facility] Last Admin: 04/25/17 08:23 Dose: 1 drop Haloperidol Lactate (Haldol) 1 mg IVPUSH Q2H PRN PRN Reason: Hallucinations Ceftriaxone Sodium 1 gm/ (Sodium Chloride) 50 mls @ 100 mls/hr IV Q24H [facility] Last Admin: 04/24/17 13:59 Dose: 100 mls/hr Sodium Chloride (Normal Saline) 250 mls @ 250 mls/hr IV .BOLUS ONE Stop: 04/25/17 14:45 Magnesium Hydroxide (Milk Of Magnesia) 30 ml PO Q12H PRN PRN Reason: Constipation Last Admin: 04/24/17 13:59 Dose: 30 ml Melatonin (Melatonin) 9 mg PO BEDTIME [facility] Last Admin: 04/24/17 20:56 Dose: 9 mg Mirtazapine (Remeron) 7.5 mg PO BEDTIME [facility] Last Admin: 04/24/17 20:53 Dose: 7.5 mg Ondansetron HCl (Zofran Odt) 4 mg PO Q6H PRN PRN Reason: Nausea able to take PO Pantoprazole Sodium (Protonix) 40 mg PO DAILY@0730 [facility] Last Admin: 04/25/17 08:21 Dose: 40 mg Polyethylene Glycol (Miralax) 17 gm PO DAILY PRN PRN Reason: Constipation Potassium Chloride (Klor-Con M20) 20 meq PO DAILY@0800 [facility] Last Admin: 04/25/17 08:22 Dose: 20 meq Senna (Senna) 8.6 mg PO BID [facility] Last Admin: 04/25/17 08:22 Dose: 8.6 mg Tamsulosin HCl (Flomax) 0.4 mg PO DAILY [facility] Last Admin: 04/25/17 08:22 Dose: 0.4 mg Discontinued Medications Digoxin (Lanoxin) 250 mcg IVPUSH ONETIME STA Stop: 04/24/17 19:37 Last Admin: 04/24/17 19:55 Dose: 250 mcg Diltiazem HCl (Cardizem) 30 mg PO QID [facility] Last Admin: 04/24/17 14:35 Dose: Not Given Enoxaparin Sodium (Lovenox) 40 mg SUBCUT DAILY [facility] Last Admin: 04/24/17 10:40 Dose: 40 mg Ceftriaxone Sodium 1 gm/ (Sodium Chloride) 50 mls @ 100 mls/hr IV Q24H [facility] Last Admin: 04/23/17 13:40 Dose: 100 mls/hr Sodium Chloride (Normal Saline) 500 mls @ 999 mls/hr IV ASDIRECTED [facility] Stop: 04/23/17 14:01 Last Admin: 04/23/17 13:31 Dose: 999 mls/hr Sodium Chloride (Normal Saline) 1,000 mls @ 125 mls/hr IV ASDIRECTED [facility] Last Admin: 04/25/17 07:15 Dose: 125 mls/hr Sodium Chloride (Normal Saline) 500 mls @ 500 mls/hr IV .BOLUS ONE Stop: 04/24/17 04:44 Last Admin: 04/24/17 03:45 Dose: 500 mls/hr Phytonadione 5 mg/ Sodium (Chloride) 50.5 mls @ 100 mls/hr IV NOW ONE Stop: 04/24/17 07:00 Phytonadione 5 mg/ Sodium (Chloride) 50.5 mls @ 100 mls/hr IV ONETIME ONE Stop: 04/24/17 08:30 Last Admin: 04/24/17 07:48 Dose: 100 mls/hr Sodium Chloride (Normal Saline) 500 mls @ 250 mls/hr IV .BOLUS ONE Stop: 04/24/17 14:10 Last Admin: 04/24/17 12:15 Dose: 250 mls/hr Sodium Chloride (Normal Saline) 500 mls @ 500 mls/hr IV .BOLUS ONE Stop: 04/24/17 20:34 Last Admin: 04/24/17 19:55 Dose: 500 mls/hr Sodium Chloride (Normal Saline) 500 mls @ 250 mls/hr IV .BOLUS ONE Stop: 04/24/17 23:47 Last Admin: 04/24/17 21:50 Dose: 250 mls/hr Sodium Chloride (Normal Saline) 500 mls @ 500 mls/hr IV .BOLUS ONE Stop: 04/25/17 04:18 Last Admin: 04/25/17 03:32 Dose: 500 mls/hr Methylprednisolone Sodium Succinate (Solu-Medrol) 125 mg IVPUSH ONETIME ONE Stop: 04/23/17 15:01 Last Admin: 04/23/17 15:27 Dose: 125 mg Phytonadione (Aquamephyton) 5 mg PO ONETIME ONE Stop: 04/23/17 15:01 Last Admin: 04/23/17 15:27 Dose: 5 mg Prednisone (Prednisone) 20 mg PO BIDMEALS [facility] Last Admin: 04/25/17 08:22 Dose: 20 mg Warfarin Sodium (Coumadin) 5 mg PO ONETIME ONE Stop: 04/25/17 10:01 Last Admin: 04/25/17 11:32 Dose: 5 mg - Exam Quality Assessment: Supplemental Oxygen, DVT Prophylaxis General: Alert, No Acute Distress Lungs: Decreased Breath Sounds. No: Rhonchi, Rub, Stridor, Wheezing Cardiovascular: Regular Rate, No Murmurs, Irregular Rhythm GI/Abdominal Exam: Normal Bowel Sounds, Soft, Non-Tender, No Distention Extremities: Non-Tender, No Pedal Edema Skin: Warm, Dry, Intact - Problem List Review Problem List Initiated/Reviewed/Updated: Yes - My Orders Last 24 Hours: My Active Orders 04/24/17 18:07 Haloperidol Lactate [Haldol] 1 mg IVPUSH Q2H PRN 04/24/17 18:15 Divalproex Sodium 250 mg PO BIDMEALS 04/24/17 21:00 Melatonin 9 mg PO BEDTIME 04/25/17 13:46 Sodium Chloride 0.9% [Normal Saline] 250 ml IV .BOLUS 04/25/17 14:26 Convert IV to Saline Lock [OM.PC] Routine 04/25/17 14:30 Digoxin [Lanoxin] 250 mcg IVPUSH ONETIME ONE 04/26/17 05:00 BASIC METABOLIC PANEL,BMP [CHEM] Timed CBC WITH AUTO DIFF [HEME] Timed DIGOXIN [CHEM] Timed 04/26/17 05:11 INR,PT,PROTHROMBIN TIME [COAG] AM - Plan Plan:: Assessment and plan - Probable acute bronchitis with acute COPD exacerbation - uses continuous oxygen at home. Improved from admission, saturations have been adequate with current supplemental oxygen -Ceftriaxone and azithromycin -Discontinue prednisone -Scheduled and as needed nebulizers -Continue Pulmicort -Supplement oxygen Atrial fibrillation with rapid ventricular response - rate control improved with use of IV digoxin -IV digoxin given again today, level pending in a.m. -Hold diltiazem -Cardiac monitoring Blood pressures have trended low despite holding diltiazem. No other potential hypotensive medications other than his Flomax. Some of the hypotension may be chronic, related to autonomic insufficiency. -Saline lock IV -Hold diltiazem -Continue IV fluids until tomorrow a.m. Super therapeutic INR - INR is subtherapeutic today -Repeat INR in the morning -Warfarin 5 mg by mouth today Stage III chronic kidney disease - kidney function at baseline at this time. Alzheimer's dementia without behavioral disturbance - patient is experiencing increase in agitation over the past 24 hours -Melatonin at bedtime -Depakote 250 mg by mouth twice a day -Haldol 1 mg IV every 2 hours as needed for agitation Maintenance issues - - DVT prophylaxis - warfarin - GI prophylaxis - PPI - Nutrition - low sodium diet - Mejia catheter - not indicated CODE STATUS - discussed with his daughter Mariella who is his decision maker. She requests that no CPR be done but a short period of intubation would be okay for reversible conditions. Admission justification - This patient will be admitted for inpatient services and is medically appropriate meeting medical necessity for inpatient admission as outlined in my documentation. I reasonably expect the patient will require inpatient services that span a period time over 2 midnights. I reasonably expect this patient to be discharged or transferred within 96 hours [facility] Disposition - anticipate discharge back to the [facility] after the hospital stay Primary care physician - Dr Sharp
[2017-04-25] MEDS: cefTRIAXone 1 GM in Sodium Chloride 0.9% 50 ML IV SCH (14:53)
[2017-04-25] MEDS: Melatonin 3 MG Tab PO SCH (20:17)
[2017-04-25] MEDS: Mirtazapine 15 MG Tab PO SCH (20:22)
[2017-04-26] MEDS ORDERED: Digoxin 500 MCG/2 ML Amp IVPUSH STA (03:47)
[2017-04-26] MEDS: Budesonide 0.5 MG/2 ML Neb Susp INH SCH ×2 (07:25→20:31)
[2017-04-26] MEDS: Albuterol/Ipratropium 3.0-0.5 MG/3 ML Neb Soln NEB SCH ×4 (07:25→20:31)
[2017-04-26] MEDS: Pantoprazole 40 MG Tab.CR PO SCH (08:26)
[2017-04-26] MEDS: Tamsulosin 0.4 MG Cap.ER PO SCH (08:29)
[2017-04-26] MEDS: Divalproex Sodium Delayed-Release 250 MG Tab.CR PO SCH ×2 (08:29→16:50)
[2017-04-26] MEDS: Azithromycin 250 MG Tab PO SCH (08:29)
[2017-04-26] MEDS: Potassium Chloride 20 MEQ Tab.ER PO SCH (08:30)
[2017-04-26] MEDS: Aspirin 81 MG Tab.Chew PO SCH (08:30)
[2017-04-26] MEDS: Dorzolamide/Timolol 2%-0.5% Ophth Soln 10 ML Bottle EYEBOTH SCH ×2 (08:30→20:27)
[2017-04-26] MEDS: Sennosides 8.6 MG Tab PO SCH ×2 (08:30→20:28)
[2017-04-26] MEDS ORDERED: Diltiazem IR 30 MG Tab PO ONE (09:00)
[2017-04-26] MEDS ORDERED: cefTRIAXone 1 GM in Sodium Chloride 0.9% 50 ML IV SCH ×2 (09:00→09:30)
[2017-04-26] MEDS ORDERED: Lactated Ringers 1,000 ML IV SCH ×2 (10:00→17:15)
--- NOTE | 2017-04-26 10:06 | CR ---
Chest 1V Frontal INDICATION: Leukocytosis FINDINGS: Comparison 04/23/2017. Hyperinflation. Heart size stable. New pulmonary venous hypertension with interstitial infiltrates and small bilateral pleural effusions. Findings suggest CHF. Bibasilar infiltrate or atelectasis, greater on the left; superimposed pneumonia in the left lower lobe is not excluded.
[2017-04-26] MEDS ORDERED: Lactated Ringers 500 ML IV SCH (16:00)
--- NOTE | 2017-04-26 17:10 | PCM.PN ---
- General Info Date of Service: 04/26/17 Functional Status: Reports: Tolerating Diet - Review of Systems General: Reports: Weakness. Denies: Fever, Chills Systems Review Comment:: Mr. Truong is remained confused, blood pressures have remained intermittently low with intermittent elevation in heart rate. He has been afebrile, white blood cell count is increased despite having stopped glucocorticoid therapy. Question possible underlying infection not managed with current antibiotics, urinalysis shows evidence of infection. - Patient Data Vitals - Most Recent: Last Vital Signs Temp 97.0 F 04/26/17 14:25 Pulse 74 04/26/17 14:31 Resp 16 04/26/17 14:25 BP 95/62 04/26/17 17:00 Pulse Ox 96 04/26/17 07:45 Weight - Most Recent: 115 lb 8.003 oz I&O - Last 24 Hours: Intake & Output 04/26/17 04/26/17 04/26/17 06:59 14:59 22:59 Intake Total 550 Output Total 400 700 Balance -400 -150 Lab Results Last 24 Hours: Laboratory Results - last 24 hr 04/26/17 04/26/17 04/26/17 Range/Units 05:30 05:30 05:30 WBC 20.7 H (4.5-11.0) K/uL RBC 4.02 L (4.30-5.90) M/uL Hgb 11.8 L (12.0-15.0) g/dL Hct 37.5 L (40.0-54.0) % MCV 93 (80-98) fL MCH 29 (27-31) pg MCHC 32 (32-36) % Plt Count 325 (150-400) K/uL Neut % (Auto) 82 H (36-66) % Lymph % (Auto) 9 L (24-44) % [place] % (Auto) 9 H (2-6) % Eos % (Auto) 0 L (2-4) % Baso % (Auto) 0 (0-1) % PT 16.6 H (9.5-12.0) sec INR 1.52 H (0.80-1.20) Sodium 142 (140-148) mmol/L Potassium 4.7 (3.6-5.2) mmol/L Chloride 111 H (100-108) mmol/L Carbon Dioxide 25 (21-32) mmol/L Anion Gap 10.7 (5.0-14.0) mmol/L BUN 40 H (7-18) mg/dL Creatinine 0.9 (0.8-1.3) mg/dL Est Cr Clr Drug Dosing 42.04 mL/min Estimated GFR (MDRD) > 60 (>60) Glucose 82 (74-106) mg/dL Calcium 7.7 L (8.5-10.1) mg/dL Urine Color Urine Appearance Urine pH (4.5-8.0) Ur Specific [employer] (1.008-1.030) Urine Protein (NEGATIVE) mg/dL Urine Glucose (UA) (NEGATIVE) mg/dL Urine Ketones (NEGATIVE) mg/dL Urine Occult Blood (NEGATIVE) Urine Nitrite (NEGAITVE) Urine Bilirubin (NEGATIVE) Urine Urobilinogen (NORMAL) mg/dL Ur Leukocyte Esterase (NEGATIVE) Urine RBC (0-5) Urine WBC (0-5) Ur Epithelial Cells Amorphous Sediment Urine Bacteria Urine Mucus Digoxin 2.98 H (0.90-2.00) ng/mL 04/26/17 Range/Units 14:11 WBC (4.5-11.0) K/uL RBC (4.30-5.90) M/uL Hgb (12.0-15.0) g/dL Hct (40.0-54.0) % MCV (80-98) fL MCH (27-31) pg MCHC (32-36) % Plt Count (150-400) K/uL Neut % (Auto) (36-66) % Lymph % (Auto) (24-44) % [place] % (Auto) (2-6) % Eos % (Auto) (2-4) % Baso % (Auto) (0-1) % PT (9.5-12.0) sec INR (0.80-1.20) Sodium (140-148) mmol/L Potassium (3.6-5.2) mmol/L Chloride (100-108) mmol/L Carbon Dioxide (21-32) mmol/L Anion Gap (5.0-14.0) mmol/L BUN (7-18) mg/dL Creatinine (0.8-1.3) mg/dL Est Cr Clr Drug Dosing mL/min Estimated GFR (MDRD) (>60) Glucose (74-106) mg/dL Calcium (8.5-10.1) mg/dL Urine Color Yellow Urine Appearance Cloudy Urine pH 5.0 (4.5-8.0) Ur Specific [employer] 1.020 (1.008-1.030) Urine Protein Negative (NEGATIVE) mg/dL Urine Glucose (UA) Normal (NEGATIVE) mg/dL Urine Ketones 15 H (NEGATIVE) mg/dL Urine Occult Blood Trace (NEGATIVE) Urine Nitrite Negative (NEGAITVE) Urine Bilirubin Small (NEGATIVE) Urine Urobilinogen Normal (NORMAL) mg/dL Ur Leukocyte Esterase Large (NEGATIVE) Urine RBC 5-10 H (0-5) Urine WBC Packed H (0-5) Ur Epithelial Cells Rare Amorphous Sediment Not seen Urine Bacteria Many Urine Mucus Not seen Digoxin (0.90-2.00) ng/mL Med Orders - Current: Current Medications Acetaminophen (Tylenol) 650 mg PO Q4H PRN PRN Reason: Pain (Mild 1-3)/fever Albuterol (Proventil Neb Soln) 2.5 mg NEB Q4H PRN PRN Reason: Shortness Of Breath/wheezing Last Admin: 04/24/17 03:32 Dose: 2.5 mg Albuterol/Ipratropium (Duoneb 3.0-0.5 Mg/3 Ml) 3 ml NEB QIDRT [facility] Last Admin: 04/26/17 14:30 Dose: 3 ml Aspirin (Aspirin) 81 mg PO DAILY [facility] Last Admin: 04/26/17 08:30 Dose: 81 mg Bisacodyl (Dulcolax) 5 mg PO DAILY PRN PRN Reason: Constipation Budesonide (Pulmicort) 0.5 mg INH BIDRT [facility] Last Admin: 04/26/17 07:25 Dose: 0.5 mg Divalproex Sodium (Divalproex Sodium) 250 mg PO BIDMEALS [facility] Last Admin: 04/26/17 16:50 Dose: 250 mg Dorzolamide/Timolol (Cosopt 2%-0.5% Ophth Soln) 0 ml EYEBOTH BID [facility] Last Admin: 04/26/17 08:30 Dose: 1 drop Haloperidol Lactate (Haldol) 1 mg IVPUSH Q2H PRN PRN Reason: Hallucinations Lactated Ringer's (Ringers, Lactated) 500 mls @ 500 mls/hr IV .BOLUS [facility] Last Admin: 04/26/17 16:10 Dose: 500 mls/hr Levofloxacin/Dextrose 500 mg/ (Premix) 100 mls @ 100 mls/hr IV Q24H [facility] Lactated Ringer's (Ringers, Lactated) 1,000 mls @ 250 mls/hr IV ASDIRECTED [facility] Stop: 04/26/17 23:16 Lactated Ringer's (Ringers, Lactated) 1,000 mls @ 125 mls/hr IV ASDIRECTED [facility] Piperacillin Sod/Tazobactam (Sod 3.375 gm/ Sodium Chloride) 50 mls @ 100 mls/ hr IV Q6H [facility] Magnesium Hydroxide (Milk Of Magnesia) 30 ml PO Q12H PRN PRN Reason: Constipation Last Admin: 04/24/17 13:59 Dose: 30 ml Melatonin (Melatonin) 9 mg PO BEDTIME [facility] Last Admin: 04/25/17 20:17 Dose: 9 mg Mirtazapine (Remeron) 7.5 mg PO BEDTIME [facility] Last Admin: 04/25/17 20:22 Dose: 7.5 mg Ondansetron HCl (Zofran Odt) 4 mg PO Q6H PRN PRN Reason: Nausea able to take PO Pantoprazole Sodium (Protonix) 40 mg PO DAILY@0730 [facility] Last Admin: 04/26/17 08:26 Dose: 40 mg Polyethylene Glycol (Miralax) 17 gm PO DAILY PRN PRN Reason: Constipation Potassium Chloride (Klor-Con M20) 20 meq PO DAILY@0800 [facility] Last Admin: 04/26/17 08:30 Dose: 20 meq Senna (Senna) 8.6 mg PO BID [facility] Last Admin: 04/26/17 08:30 Dose: 8.6 mg Tamsulosin HCl (Flomax) 0.4 mg PO DAILY [facility] Last Admin: 04/26/17 08:29 Dose: 0.4 mg Warfarin Sodium (Coumadin) 2.5 mg PO ONETIME ONE Stop: 04/26/17 17:03 Discontinued Medications Azithromycin (Zithromax) 500 mg PO DAILY [facility] Last Admin: 04/26/17 08:29 Dose: 500 mg Digoxin (Lanoxin) 250 mcg IVPUSH ONETIME STA Stop: 04/24/17 19:37 Last Admin: 04/24/17 19:55 Dose: 250 mcg Digoxin (Lanoxin) 250 mcg IVPUSH ONETIME ONE Stop: 04/25/17 14:31 Last Admin: 04/25/17 14:31 Dose: 250 mcg Digoxin (Lanoxin) 250 mcg IVPUSH ONETIME STA Stop: 04/26/17 03:48 Last Admin: 04/26/17 04:05 Dose: 250 mcg Diltiazem HCl (Cardizem) 30 mg PO QID [facility] Last Admin: 04/24/17 14:35 Dose: Not Given Diltiazem HCl (Cardizem) 30 mg PO ONETIME ONE Stop: 04/26/17 09:01 Last Admin: 04/26/17 09:05 Dose: 30 mg Enoxaparin Sodium (Lovenox) 40 mg SUBCUT DAILY [facility] Last Admin: 04/24/17 10:40 Dose: 40 mg Ceftriaxone Sodium 1 gm/ (Sodium Chloride) 50 mls @ 100 mls/hr IV Q24H [facility] Last Admin: 04/23/17 13:40 Dose: 100 mls/hr Sodium Chloride (Normal Saline) 500 mls @ 999 mls/hr IV ASDIRECTED [facility] Stop: 04/23/17 14:01 Last Admin: 04/23/17 13:31 Dose: 999 mls/hr Sodium Chloride (Normal Saline) 1,000 mls @ 125 mls/hr IV ASDIRECTED [facility] Last Admin: 04/25/17 07:15 Dose: 125 mls/hr Ceftriaxone Sodium 1 gm/ (Sodium Chloride) 50 mls @ 100 mls/hr IV Q24H [facility] Last Admin: 04/25/17 14:53 Dose: 100 mls/hr Sodium Chloride (Normal Saline) 500 mls @ 500 mls/hr IV .BOLUS ONE Stop: 04/24/17 04:44 Last Admin: 04/24/17 03:45 Dose: 500 mls/hr Phytonadione 5 mg/ Sodium (Chloride) 50.5 mls @ 100 mls/hr IV NOW ONE Stop: 04/24/17 07:00 Phytonadione 5 mg/ Sodium (Chloride) 50.5 mls @ 100 mls/hr IV ONETIME ONE Stop: 04/24/17 08:30 Last Admin: 04/24/17 07:48 Dose: 100 mls/hr Sodium Chloride (Normal Saline) 500 mls @ 250 mls/hr IV .BOLUS ONE Stop: 04/24/17 14:10 Last Admin: 04/24/17 12:15 Dose: 250 mls/hr Sodium Chloride (Normal Saline) 500 mls @ 500 mls/hr IV .BOLUS ONE Stop: 04/24/17 20:34 Last Admin: 04/24/17 19:55 Dose: 500 mls/hr Sodium Chloride (Normal Saline) 500 mls @ 250 mls/hr IV .BOLUS ONE Stop: 04/24/17 23:47 Last Admin: 04/24/17 21:50 Dose: 250 mls/hr Sodium Chloride (Normal Saline) 500 mls @ 500 mls/hr IV .BOLUS ONE Stop: 04/25/17 04:18 Last Admin: 04/25/17 03:32 Dose: 500 mls/hr Sodium Chloride (Normal Saline) 250 mls @ 250 mls/hr IV .BOLUS ONE Stop: 04/25/17 14:45 Last Admin: 04/25/17 14:53 Dose: 250 mls/hr Ceftriaxone Sodium 1 gm/ (Sodium Chloride) 50 mls @ 100 mls/hr IV Q24H [facility] Ceftriaxone Sodium 1 gm/ (Sodium Chloride) 50 mls @ 100 mls/hr IV Q24H [facility] Last Admin: 04/26/17 10:05 Dose: 100 mls/hr Lactated Ringer's (Ringers, Lactated) 1,000 mls @ 500 mls/hr IV ASDIRECTED [facility] Stop: 04/26/17 11:01 Last Admin: 04/26/17 10:30 Dose: 500 mls/hr Methylprednisolone Sodium Succinate (Solu-Medrol) 125 mg IVPUSH ONETIME ONE Stop: 04/23/17 15:01 Last Admin: 04/23/17 15:27 Dose: 125 mg Phytonadione (Aquamephyton) 5 mg PO ONETIME ONE Stop: 04/23/17 15:01 Last Admin: 04/23/17 15:27 Dose: 5 mg Prednisone (Prednisone) 20 mg PO BIDMEALS [facility] Last Admin: 04/25/17 08:22 Dose: 20 mg Warfarin Sodium (Coumadin) 5 mg PO ONETIME ONE Stop: 04/25/17 10:01 Last Admin: 04/25/17 11:32 Dose: 5 mg - Exam Quality Assessment: Supplemental Oxygen, DVT Prophylaxis General: Alert, Cooperative, No Acute Distress Lungs: Clear to Auscultation, Normal Respiratory Effort, Decreased Breath Sounds. No: Rales, Rhonchi, Rub, Stridor, Wheezing Cardiovascular: No Murmurs, Irregular Rhythm, Tachycardia GI/Abdominal Exam: Normal Bowel Sounds, Soft, Non-Tender, No Organomegaly, No Distention Extremities: Non-Tender, Pedal Edema Skin: Warm, Dry, Intact - Problem List Review Problem List Initiated/Reviewed/Updated: Yes - My Orders Last 24 Hours: My Active Orders 04/26/17 10:08 Air Overlay [Pressure Reduction Mattress] [OM.PC] Routine 04/26/17 15:41 CULTURE URINE [RM] Stat 04/26/17 16:00 Lactated Ringers [Ringers, Lactated] 500 ml IV .BOLUS 04/26/17 17:02 Warfarin [Coumadin] 2.5 mg PO ONETIME ONE 04/26/17 17:15 Lactated Ringers [Ringers, Lactated] 1,000 ml IV ASDIRECTED Levofloxacin/Dextrose 5%-Water [Levaquin in D5W 500 MG/100 ML] 500 mg Premix Bag 1 bag IV Q24H Piperacillin/Tazobactam [Zosyn] 3.375 gm Sodium Chloride 0.9% [Normal Saline] 50 ml IV Q6H 04/26/17 23:15 Lactated Ringers @ 125 MLS/HR(1000ml) Lactated Ringers [Ringers, Lactated] 1, 000 ml IV ASDIRECTED 04/27/17 05:00 BASIC METABOLIC PANEL,BMP [CHEM] Timed CBC WITH AUTO DIFF [HEME] Timed DIGOXIN [CHEM] Timed 04/27/17 05:11 INR,PT,PROTHROMBIN TIME [COAG] AM - Plan Plan:: Assessment and plan - Probable acute bronchitis with acute COPD exacerbation - white blood cell count elevated despite having stopped prednisone yesterday. Evaluation for other potential source of infection underway, urinalysis shows evidence of probable infection. -Discontinue Ceftriaxone and azithromycin -The Zosyn and levofloxacin -Scheduled and as needed nebulizers -Continue Pulmicort -Supplement oxygen Atrial fibrillation with rapid ventricular response - rate control improved with use of IV digoxin, level elevated today which will preclude further use of digoxin. Heart rate does seem to respond to use of IV fluids. -Hold diltiazem -Cardiac monitoring Hypotension-Blood pressures have trended low despite holding diltiazem. No other potential hypotensive medications other than his Flomax. Some of the hypotension may be chronic, related to autonomic insufficiency. Question also possible underlying infection. Blood pressure and elevated heart rate do seem to respond to fluid resuscitation -Hold diltiazem -Resume IV fluids Super therapeutic INR - INR is subtherapeutic today -Repeat INR in the morning -Warfarin 2.5 mg by mouth today Stage III chronic kidney disease - kidney function at baseline at this time. Alzheimer's dementia without behavioral disturbance - patient is experiencing increase in agitation over the past 24 hours -Melatonin at bedtime -Depakote 250 mg by mouth twice a day -Haldol 1 mg IV every 2 hours as needed for agitation Maintenance issues - - DVT prophylaxis - warfarin - GI prophylaxis - PPI - Nutrition - low sodium diet - Mejia catheter - not indicated CODE STATUS - discussed with his daughter Mariella who is his decision maker. She requests that no CPR be done but a short period of intubation would be okay for reversible conditions. Admission justification - This patient will be admitted for inpatient services and is medically appropriate meeting medical necessity for inpatient admission as outlined in my documentation. I reasonably expect the patient will require inpatient services that span a period time over 2 midnights. I reasonably expect this patient to be discharged or transferred within 96 hours [facility]. Disposition - anticipate discharge back to the half-way after the hospital stay Primary care physician - Dr Sharp
[2017-04-26] MEDS: Piperacillin/Tazobactam/Dext 3.375 GM in Premix Bag 1 BAG IV SCH ×2 (17:53→23:59)
[2017-04-26] MEDS ORDERED: Warfarin 2.5 MG Tab PO ONE (18:00)
[2017-04-26] MEDS: Levofloxacin/Dextrose 5%-Water 500 MG in Premix Bag 1 BAG IV SCH (18:58)
[2017-04-26] MEDS: Melatonin 3 MG Tab PO SCH (20:27)
[2017-04-26] MEDS: Mirtazapine 15 MG Tab PO SCH (20:28)
[2017-04-26] MEDS: Lactated Ringers 1,000 ML IV SCH (22:16)
[2017-04-27] MEDS: Piperacillin/Tazobactam/Dext 3.375 GM in Premix Bag 1 BAG IV SCH ×3 (04:59→17:18)
[2017-04-27] MEDS: Albuterol 0.083% 2.5 MG/3 ML Neb Soln NEB PRN (06:24)
[2017-04-27] MEDS: Budesonide 0.5 MG/2 ML Neb Susp INH SCH ×2 (07:19→20:44)
[2017-04-27] MEDS: Albuterol/Ipratropium 3.0-0.5 MG/3 ML Neb Soln NEB SCH ×4 (07:19→20:44)
[2017-04-27] MEDS: Lactated Ringers 1,000 ML IV SCH ×2 (07:25→16:08)
[2017-04-27] MEDS: Divalproex Sodium Delayed-Release 250 MG Tab.CR PO SCH ×2 (08:18→16:10)
[2017-04-27] MEDS: Dorzolamide/Timolol 2%-0.5% Ophth Soln 10 ML Bottle EYEBOTH SCH ×2 (08:18→20:44)
[2017-04-27] MEDS: Potassium Chloride 20 MEQ Tab.ER PO SCH (08:19)
[2017-04-27] MEDS: Pantoprazole 40 MG Tab.CR PO SCH (08:19)
[2017-04-27] MEDS: Tamsulosin 0.4 MG Cap.ER PO SCH (08:19)
[2017-04-27] MEDS: Sennosides 8.6 MG Tab PO SCH ×2 (08:19→20:45)
[2017-04-27] MEDS: Aspirin 81 MG Tab.Chew PO SCH (08:20)
[2017-04-27] MEDS ORDERED: Furosemide 20 MG/2 ML VIAL IVPUSH ONE (17:00)
[2017-04-27] MEDS ORDERED: Sodium Chloride 0.9% 1,000 ML IV SCH (17:45)
--- NOTE | 2017-04-27 18:07 | PCM.PN ---
- General Info Date of Service: 04/27/17 Functional Status: Reports: Pain Controlled, Urinating - Review of Systems General: Reports: Weakness. Denies: Fever, Chills Pulmonary: Reports: Shortness of Breath. Denies: Pleuritic Chest Pain, Cough, Sputum, Hemoptysis, Wheezing Cardiovascular: Reports: Dyspnea on Exertion. Denies: Chest Pain, Palpitations , Orthopnea, PND, Edema Gastrointestinal: Reports: No Symptoms Psychiatric: Reports: Confusion Systems Review Comment:: Mr. Good continues to experience difficulty with hypotension and tachycardia with underlying atrial fibrillation. He does not feel as well over the past few days his appetite has been diminished and he is been significantly weaker. There 's been no significant temperature elevation but his white count is 22,000 today. Evaluation yesterday showed urinalysis consistent with urinary tract infection and antibiotics have been changed to a more broad spectrum regimen. - Patient Data Vitals - Most Recent: Last Vital Signs Temp 96.3 F 04/27/17 14:51 Pulse 114 H 04/27/17 14:51 Resp 18 04/27/17 14:51 BP 91/69 04/27/17 14:51 Pulse Ox 94 L 04/27/17 14:51 Weight - Most Recent: 135 lb 11.2 oz I&O - Last 24 Hours: Intake & Output 04/27/17 04/27/17 04/27/17 06:59 14:59 22:59 Intake Total 1854 50 1600 Output Total 150 300 200 Balance 1704 -250 1400 Lab Results Last 24 Hours: Laboratory Results - last 24 hr 04/27/17 04/27/17 04/27/17 Range/Units 04:10 04:10 04:10 WBC 22.3 H (4.5-11.0) K/uL RBC 4.16 L (4.30-5.90) M/uL Hgb 12.3 (12.0-15.0) g/dL Hct 39.3 L (40.0-54.0) % MCV 95 (80-98) fL MCH 30 (27-31) pg MCHC 31 L (32-36) % Plt Count 318 (150-400) K/uL Neut % (Auto) 84 H (36-66) % Lymph % (Auto) 7 L (24-44) % [place] % (Auto) 9 H (2-6) % Eos % (Auto) 0 L (2-4) % Baso % (Auto) 0 (0-1) % PT 49.5 H (9.5-12.0) sec INR 4.35 H* D (0.80-1.20) Sodium 142 (140-148) mmol/L Potassium 4.5 (3.6-5.2) mmol/L Chloride 110 H (100-108) mmol/L Carbon Dioxide 26 (21-32) mmol/L Anion Gap 10.5 (5.0-14.0) mmol/L BUN 35 H (7-18) mg/dL Creatinine 0.9 (0.8-1.3) mg/dL Est Cr Clr Drug Dosing 42.04 mL/min Estimated GFR (MDRD) > 60 (>60) Glucose 69 L (74-106) mg/dL Calcium 7.6 L (8.5-10.1) mg/dL Digoxin 1.22 (0.90-2.00) ng/mL Med Orders - Current: Current Medications Acetaminophen (Tylenol) 650 mg PO Q4H PRN PRN Reason: Pain (Mild 1-3)/fever Albuterol (Proventil Neb Soln) 2.5 mg NEB Q4H PRN PRN Reason: Shortness Of Breath/wheezing Last Admin: 04/27/17 06:24 Dose: 2.5 mg Albuterol/Ipratropium (Duoneb 3.0-0.5 Mg/3 Ml) 3 ml NEB QIDRT [facility] Last Admin: 04/27/17 14:18 Dose: 3 ml Aspirin (Aspirin) 81 mg PO DAILY [facility] Last Admin: 04/27/17 08:20 Dose: 81 mg Bisacodyl (Dulcolax) 5 mg PO DAILY PRN PRN Reason: Constipation Budesonide (Pulmicort) 0.5 mg INH BIDRT [facility] Last Admin: 04/27/17 07:19 Dose: 0.5 mg Digoxin (Lanoxin) 250 mcg PO DAILY [facility] Divalproex Sodium (Divalproex Sodium) 250 mg PO BIDMEALS [facility] Last Admin: 04/27/17 16:10 Dose: 250 mg Dorzolamide/Timolol (Cosopt 2%-0.5% Ophth Soln) 0 ml EYEBOTH BID [facility] Last Admin: 04/27/17 08:18 Dose: 1 drop Haloperidol Lactate (Haldol) 1 mg IVPUSH Q2H PRN PRN Reason: Hallucinations Levofloxacin/Dextrose 500 mg/ (Premix) 100 mls @ 100 mls/hr IV Q24H [facility] Last Admin: 04/26/17 18:58 Dose: 100 mls/hr Piperacillin/Tazobactam/ (Dextrose 3.375 gm/ Premix) 50 mls @ 100 mls/hr IV Q6H [facility] Last Admin: 04/27/17 17:18 Dose: 100 mls/hr Sodium Chloride (Normal Saline) 1,000 mls @ 50 mls/hr IV ASDIRECTED [facility] Magnesium Hydroxide (Milk Of Magnesia) 30 ml PO Q12H PRN PRN Reason: Constipation Last Admin: 04/24/17 13:59 Dose: 30 ml Melatonin (Melatonin) 9 mg PO BEDTIME [facility] Last Admin: 04/26/17 20:27 Dose: 9 mg Mirtazapine (Remeron) 7.5 mg PO BEDTIME [facility] Last Admin: 04/26/17 20:28 Dose: 7.5 mg Ondansetron HCl (Zofran Odt) 4 mg PO Q6H PRN PRN Reason: Nausea able to take PO Pantoprazole Sodium (Protonix) 40 mg PO DAILY@0730 [facility] Last Admin: 04/27/17 08:19 Dose: 40 mg Polyethylene Glycol (Miralax) 17 gm PO DAILY PRN PRN Reason: Constipation Potassium Chloride (Klor-Con M20) 20 meq PO DAILY@0800 [facility] Last Admin: 04/27/17 08:19 Dose: 20 meq Senna (Senna) 8.6 mg PO BID [facility] Last Admin: 04/27/17 08:19 Dose: 8.6 mg Tamsulosin HCl (Flomax) 0.4 mg PO DAILY [facility] Last Admin: 04/27/17 08:19 Dose: 0.4 mg Discontinued Medications Azithromycin (Zithromax) 500 mg PO DAILY [facility] Last Admin: 04/26/17 08:29 Dose: 500 mg Digoxin (Lanoxin) 250 mcg IVPUSH ONETIME STA Stop: 04/24/17 19:37 Last Admin: 04/24/17 19:55 Dose: 250 mcg Digoxin (Lanoxin) 250 mcg IVPUSH ONETIME ONE Stop: 04/25/17 14:31 Last Admin: 04/25/17 14:31 Dose: 250 mcg Digoxin (Lanoxin) 250 mcg IVPUSH ONETIME STA Stop: 04/26/17 03:48 Last Admin: 04/26/17 04:05 Dose: 250 mcg Diltiazem HCl (Cardizem) 30 mg PO QID [facility] Last Admin: 04/24/17 14:35 Dose: Not Given Diltiazem HCl (Cardizem) 30 mg PO ONETIME ONE Stop: 04/26/17 09:01 Last Admin: 04/26/17 09:05 Dose: 30 mg Enoxaparin Sodium (Lovenox) 40 mg SUBCUT DAILY [facility] Last Admin: 04/24/17 10:40 Dose: 40 mg Furosemide (Lasix) 20 mg IVPUSH NOW ONE Stop: 04/27/17 17:01 Last Admin: 04/27/17 17:18 Dose: 20 mg Ceftriaxone Sodium 1 gm/ (Sodium Chloride) 50 mls @ 100 mls/hr IV Q24H [facility] Last Admin: 04/23/17 13:40 Dose: 100 mls/hr Sodium Chloride (Normal Saline) 500 mls @ 999 mls/hr IV ASDIRECTED [facility] Stop: 04/23/17 14:01 Last Admin: 04/23/17 13:31 Dose: 999 mls/hr Sodium Chloride (Normal Saline) 1,000 mls @ 125 mls/hr IV ASDIRECTED [facility] Last Admin: 04/25/17 07:15 Dose: 125 mls/hr Ceftriaxone Sodium 1 gm/ (Sodium Chloride) 50 mls @ 100 mls/hr IV Q24H [facility] Last Admin: 04/25/17 14:53 Dose: 100 mls/hr Sodium Chloride (Normal Saline) 500 mls @ 500 mls/hr IV .BOLUS ONE Stop: 04/24/17 04:44 Last Admin: 04/24/17 03:45 Dose: 500 mls/hr Phytonadione 5 mg/ Sodium (Chloride) 50.5 mls @ 100 mls/hr IV NOW ONE Stop: 04/24/17 07:00 Phytonadione 5 mg/ Sodium (Chloride) 50.5 mls @ 100 mls/hr IV ONETIME ONE Stop: 04/24/17 08:30 Last Admin: 04/24/17 07:48 Dose: 100 mls/hr Sodium Chloride (Normal Saline) 500 mls @ 250 mls/hr IV .BOLUS ONE Stop: 04/24/17 14:10 Last Admin: 04/24/17 12:15 Dose: 250 mls/hr Sodium Chloride (Normal Saline) 500 mls @ 500 mls/hr IV .BOLUS ONE Stop: 04/24/17 20:34 Last Admin: 04/24/17 19:55 Dose: 500 mls/hr Sodium Chloride (Normal Saline) 500 mls @ 250 mls/hr IV .BOLUS ONE Stop: 04/24/17 23:47 Last Admin: 04/24/17 21:50 Dose: 250 mls/hr Sodium Chloride (Normal Saline) 500 mls @ 500 mls/hr IV .BOLUS ONE Stop: 04/25/17 04:18 Last Admin: 04/25/17 03:32 Dose: 500 mls/hr Sodium Chloride (Normal Saline) 250 mls @ 250 mls/hr IV .BOLUS ONE Stop: 04/25/17 14:45 Last Admin: 04/25/17 14:53 Dose: 250 mls/hr Ceftriaxone Sodium 1 gm/ (Sodium Chloride) 50 mls @ 100 mls/hr IV Q24H [facility] Ceftriaxone Sodium 1 gm/ (Sodium Chloride) 50 mls @ 100 mls/hr IV Q24H [facility] Last Admin: 04/26/17 10:05 Dose: 100 mls/hr Lactated Ringer's (Ringers, Lactated) 1,000 mls @ 500 mls/hr IV ASDIRECTED [facility] Stop: 04/26/17 11:01 Last Admin: 04/26/17 10:30 Dose: 500 mls/hr Lactated Ringer's (Ringers, Lactated) 500 mls @ 500 mls/hr IV .BOLUS [facility] Last Admin: 04/26/17 16:10 Dose: 500 mls/hr Lactated Ringer's (Ringers, Lactated) 1,000 mls @ 250 mls/hr IV ASDIRECTED [facility] Stop: 04/26/17 23:16 Last Admin: 04/26/17 18:01 Dose: 250 mls/hr Lactated Ringer's (Ringers, Lactated) 1,000 mls @ 125 mls/hr IV ASDIRECTED [facility] Last Admin: 04/27/17 16:08 Dose: 125 mls/hr Methylprednisolone Sodium Succinate (Solu-Medrol) 125 mg IVPUSH ONETIME ONE Stop: 04/23/17 15:01 Last Admin: 04/23/17 15:27 Dose: 125 mg Phytonadione (Aquamephyton) 5 mg PO ONETIME ONE Stop: 04/23/17 15:01 Last Admin: 04/23/17 15:27 Dose: 5 mg Prednisone (Prednisone) 20 mg PO BIDMEALS [facility] Last Admin: 04/25/17 08:22 Dose: 20 mg Warfarin Sodium (Coumadin) 5 mg PO ONETIME ONE Stop: 04/25/17 10:01 Last Admin: 04/25/17 11:32 Dose: 5 mg Warfarin Sodium (Coumadin) 2.5 mg PO ONETIME ONE Stop: 04/26/17 18:01 Last Admin: 04/26/17 18:07 Dose: 2.5 mg - Exam Quality Assessment: Supplemental Oxygen, DVT Prophylaxis General: Alert, Cooperative, Mild Distress Lungs: Normal Respiratory Effort, Decreased Breath Sounds. No: Crackles, Rales , Wheezing Cardiovascular: No Murmurs, Irregular Rhythm, Tachycardia GI/Abdominal Exam: Normal Bowel Sounds, Soft, Non-Tender, No Distention Extremities: Non-Tender, No Pedal Edema Skin: Warm, Dry, Intact - Problem List Review Problem List Initiated/Reviewed/Updated: Yes - My Orders Last 24 Hours: My Active Orders 04/26/17 18:00 Piperacillin/Tazobactam/Dext [Zosyn in Dextrose Iso-Osmotic 3.375 GM] 3.375 gm Premix Bag 1 bag IV Q6H 04/26/17 19:00 Levofloxacin/Dextrose 5%-Water [Levaquin in D5W 500 MG/100 ML] 500 mg Premix Bag 1 bag IV Q24H 04/27/17 00:30 CULTURE URINE [RM] Stat 04/27/17 08:32 Echo Comp wo Cont [US] Urgent 04/27/17 17:45 Digoxin [Lanoxin] 250 mcg PO DAILY Sodium Chloride 0.9% @ 50 MLS/HR(1000ml) Sodium Chloride 0.9% [Normal Saline] 1 ,000 ml IV ASDIRECTED 04/28/17 05:00 BASIC METABOLIC PANEL,BMP [CHEM] Timed CBC WITH AUTO DIFF [HEME] Timed DIGOXIN [CHEM] Timed INR,PT,PROTHROMBIN TIME [COAG] Timed - Plan Plan:: Assessment and plan - Cystitis-no temperature elevation but white blood cell count remains significantly elevated, no evidence of active respiratory infection at the present time -Discontinue Ceftriaxone and azithromycin - Zosyn and levofloxacin -Urine culture pending Atrial fibrillation with rapid ventricular response - intermittent elevation in heart rate -Digoxin 0.25 mg by mouth daily -Cardiac monitoring Hypotension-Blood pressures have trended low despite holding diltiazem. No other potential hypotensive medications other than his Flomax. Some of the hypotension may be chronic, related to autonomic insufficiency. Question also possible underlying infection. Blood pressure and elevated heart rate do seem to respond to fluid resuscitation -Hold diltiazem -Resume IV fluids Super therapeutic INR - INR is subtherapeutic today -Repeat INR in the morning -Hold warfarin Stage III chronic kidney disease - kidney function at baseline at this time. Alzheimer's dementia without behavioral disturbance -Melatonin at bedtime -Depakote 250 mg by mouth twice a day -Haldol 1 mg IV every 2 hours as needed for agitation Maintenance issues - - DVT prophylaxis - warfarin - GI prophylaxis - PPI - Nutrition - low sodium diet - Mejia catheter - not indicated CODE STATUS - discussed with his daughter Mariella who is his decision maker. She requests that no CPR be done but a short period of intubation would be okay for reversible conditions. Admission justification - This patient will be admitted for inpatient services and is medically appropriate meeting medical necessity for inpatient admission as outlined in my documentation. I reasonably expect the patient will require inpatient services that span a period time over 2 midnights. I reasonably expect this patient to be discharged or transferred within 96 hours [facility]. Disposition - anticipate discharge back to the care home after the hospital stay Primary care physician - Dr Sharp
[2017-04-27] MEDS: Levofloxacin/Dextrose 5%-Water 500 MG in Premix Bag 1 BAG IV SCH (18:28)
[2017-04-27] MEDS: Digoxin 125 MCG Tab PO SCH (18:28)
[2017-04-27] MEDS ORDERED: Diltiazem IR 30 MG Tab PO ONE (20:26)
[2017-04-27] MEDS: Mirtazapine 15 MG Tab PO SCH (20:44)
[2017-04-27] MEDS: Melatonin 3 MG Tab PO SCH (20:44)
[2017-04-28] MEDS: Piperacillin/Tazobactam/Dext 3.375 GM in Premix Bag 1 BAG IV SCH ×2 (01:25→05:16)
[2017-04-28] MEDS ORDERED: Phytonadione 1 MG in Sodium Chloride 0.9% 50 ML IV ONE (06:19)
[2017-04-28] MEDS ORDERED: Sodium Chloride 0.9% 0 ML ONE (06:41)
[2017-04-28] MEDS: Budesonide 0.5 MG/2 ML Neb Susp INH SCH ×2 (07:10→20:33)
[2017-04-28] MEDS: Albuterol/Ipratropium 3.0-0.5 MG/3 ML Neb Soln NEB SCH ×4 (07:10→20:33)
[2017-04-28] MEDS: Divalproex Sodium Delayed-Release 250 MG Tab.CR PO SCH ×2 (08:05→17:11)
[2017-04-28] MEDS: Pantoprazole 40 MG Tab.CR PO SCH (08:05)
[2017-04-28] MEDS: Aspirin 81 MG Tab.Chew PO SCH (08:06)
[2017-04-28] MEDS: Potassium Chloride 20 MEQ Tab.ER PO SCH (08:06)
[2017-04-28] MEDS: Tamsulosin 0.4 MG Cap.ER PO SCH (08:06)
[2017-04-28] MEDS: Sennosides 8.6 MG Tab PO SCH ×2 (08:06→20:41)
[2017-04-28] MEDS: Dorzolamide/Timolol 2%-0.5% Ophth Soln 10 ML Bottle EYEBOTH SCH ×2 (08:06→20:40)
[2017-04-28] MEDS ORDERED: Furosemide 20 MG/2 ML VIAL IVPUSH ONE (08:23)
[2017-04-28] MEDS: Fluconazole/Normal Saline 200 MG in Premix Bag 1 BAG IV SCH (09:26)
--- NOTE | 2017-04-28 12:45 | PCM.PN ---
- General Info Date of Service: 04/28/17 Functional Status: Reports: Pain Controlled - Review of Systems General: Reports: Weakness. Denies: Fever, Chills Pulmonary: Reports: Shortness of Breath. Denies: Cough, Sputum, Wheezing Cardiovascular: Reports: Dyspnea on Exertion, Edema. Denies: Chest Pain, Palpitations, Orthopnea, PND Gastrointestinal: Reports: No Symptoms Psychiatric: Reports: Confusion Systems Review Comment:: Mr. Truong is been unchanged over the past 24 hours, continues to experience intermittent episodes of A. fib with RVR as well as borderline blood pressures. Urine cultures growing out only yeast, no other evidence of current infection. Appetite remains poor and he has been very weak. Remains intermittently confused , minimally agitated. - Patient Data Vitals - Most Recent: Last Vital Signs Temp 96.4 F 04/28/17 11:00 Pulse 92 04/28/17 11:00 Resp 18 04/28/17 11:00 BP 96/58 L 04/28/17 11:00 Pulse Ox 94 L 04/28/17 11:00 Weight - Most Recent: 298 lb 1.039 oz I&O - Last 24 Hours: Intake & Output 04/27/17 04/28/17 04/28/17 22:59 06:59 14:59 Intake Total 1840 150 550 Output Total 500 800 200 Balance 1340 -650 350 Lab Results Last 24 Hours: Laboratory Results - last 24 hr 04/28/17 04/28/17 04/28/17 Range/Units 05:39 05:39 05:39 WBC 21.1 H (4.5-11.0) K/uL RBC 4.07 L (4.30-5.90) M/uL Hgb 11.8 L (12.0-15.0) g/dL Hct 37.9 L (40.0-54.0) % MCV 93 (80-98) fL MCH 29 (27-31) pg MCHC 31 L (32-36) % Plt Count 263 (150-400) K/uL Neut % (Auto) 88 H (36-66) % Lymph % (Auto) 6 L (24-44) % [place] % (Auto) 6 (2-6) % Eos % (Auto) 0 L (2-4) % Baso % (Auto) 0 (0-1) % PT > 100.0 H (9.5-12.0) sec INR (0.80-1.20) Sodium 141 (140-148) mmol/L Potassium 4.2 (3.6-5.2) mmol/L Chloride 107 (100-108) mmol/L Carbon Dioxide 23 (21-32) mmol/L Anion Gap 10.8 (5.0-14.0) mmol/L BUN 33 H (7-18) mg/dL Creatinine 1.0 (0.8-1.3) mg/dL Est Cr Clr Drug Dosing 44.35 mL/min Estimated GFR (MDRD) > 60 (>60) Glucose 56 L (74-106) mg/dL Calcium 7.5 L (8.5-10.1) mg/dL Digoxin 1.65 (0.90-2.00) ng/mL [facility] Results Last 24 Hours: Microbiology 04/27/17 00:30 Urine Culture - Final Urine, Clean Catch YEAST Med Orders - Current: Current Medications Acetaminophen (Tylenol) 650 mg PO Q4H PRN PRN Reason: Pain (Mild 1-3)/fever Albuterol (Proventil Neb Soln) 2.5 mg NEB Q4H PRN PRN Reason: Shortness Of Breath/wheezing Last Admin: 04/27/17 06:24 Dose: 2.5 mg Albuterol/Ipratropium (Duoneb 3.0-0.5 Mg/3 Ml) 3 ml NEB QIDRT [facility] Last Admin: 04/28/17 10:45 Dose: 3 ml Aspirin (Aspirin) 81 mg PO DAILY [facility] Last Admin: 04/28/17 08:06 Dose: 81 mg Bisacodyl (Dulcolax) 5 mg PO DAILY PRN PRN Reason: Constipation Budesonide (Pulmicort) 0.5 mg INH BIDRT [facility] Last Admin: 04/28/17 07:10 Dose: 0.5 mg Digoxin (Lanoxin) 250 mcg PO DAILY@1300 [facility] Last Admin: 04/27/17 18:28 Dose: 250 mcg Diltiazem HCl (Cardizem) 30 mg PO Q6HR [facility] Divalproex Sodium (Divalproex Sodium) 250 mg PO BIDMEALS [facility] Last Admin: 04/28/17 08:05 Dose: 250 mg Dorzolamide/Timolol (Cosopt 2%-0.5% Ophth Soln) 0 ml EYEBOTH BID [facility] Last Admin: 04/28/17 08:06 Dose: 1 drop Furosemide (Lasix) 20 mg IVPUSH Q12H [facility] Haloperidol Lactate (Haldol) 1 mg IVPUSH Q2H PRN PRN Reason: Hallucinations Fluconazole/Sodium Chloride (200 mg/ Premix) 100 mls @ 100 mls/hr IV Q24H [facility] Last Admin: 04/28/17 09:26 Dose: 100 mls/hr Magnesium Hydroxide (Milk Of Magnesia) 30 ml PO Q12H PRN PRN Reason: Constipation Last Admin: 04/24/17 13:59 Dose: 30 ml Melatonin (Melatonin) 9 mg PO BEDTIME [facility] Last Admin: 04/27/17 20:44 Dose: 9 mg Mirtazapine (Remeron) 7.5 mg PO BEDTIME [facility] Last Admin: 04/27/17 20:44 Dose: 7.5 mg Ondansetron HCl (Zofran Odt) 4 mg PO Q6H PRN PRN Reason: Nausea able to take PO Pantoprazole Sodium (Protonix) 40 mg PO DAILY@0730 [facility] Last Admin: 04/28/17 08:05 Dose: 40 mg Polyethylene Glycol (Miralax) 17 gm PO DAILY PRN PRN Reason: Constipation Potassium Chloride (Klor-Con M20) 20 meq PO DAILY@0800 [facility] Last Admin: 04/28/17 08:06 Dose: 20 meq Senna (Senna) 8.6 mg PO BID [facility] Last Admin: 04/28/17 08:06 Dose: 8.6 mg Tamsulosin HCl (Flomax) 0.4 mg PO DAILY [facility] Last Admin: 04/28/17 08:06 Dose: 0.4 mg Discontinued Medications Azithromycin (Zithromax) 500 mg PO DAILY [facility] Last Admin: 04/26/17 08:29 Dose: 500 mg Digoxin (Lanoxin) 250 mcg IVPUSH ONETIME STA Stop: 04/24/17 19:37 Last Admin: 04/24/17 19:55 Dose: 250 mcg Digoxin (Lanoxin) 250 mcg IVPUSH ONETIME ONE Stop: 04/25/17 14:31 Last Admin: 04/25/17 14:31 Dose: 250 mcg Digoxin (Lanoxin) 250 mcg IVPUSH ONETIME STA Stop: 04/26/17 03:48 Last Admin: 04/26/17 04:05 Dose: 250 mcg Diltiazem HCl (Cardizem) 30 mg PO QID [facility] Last Admin: 04/24/17 14:35 Dose: Not Given Diltiazem HCl (Cardizem) 30 mg PO ONETIME ONE Stop: 04/26/17 09:01 Last Admin: 04/26/17 09:05 Dose: 30 mg Diltiazem HCl (Cardizem) 30 mg PO ONETIME ONE Stop: 04/27/17 20:27 Last Admin: 04/27/17 20:43 Dose: 30 mg Enoxaparin Sodium (Lovenox) 40 mg SUBCUT DAILY [facility] Last Admin: 04/24/17 10:40 Dose: 40 mg Furosemide (Lasix) 20 mg IVPUSH NOW ONE Stop: 04/27/17 17:01 Last Admin: 04/27/17 17:18 Dose: 20 mg Furosemide (Lasix) 20 mg IVPUSH NOW ONE Stop: 04/28/17 08:24 Last Admin: 04/28/17 09:33 Dose: 20 mg Ceftriaxone Sodium 1 gm/ (Sodium Chloride) 50 mls @ 100 mls/hr IV Q24H [facility] Last Admin: 04/23/17 13:40 Dose: 100 mls/hr Sodium Chloride (Normal Saline) 500 mls @ 999 mls/hr IV ASDIRECTED [facility] Stop: 04/23/17 14:01 Last Admin: 04/23/17 13:31 Dose: 999 mls/hr Sodium Chloride (Normal Saline) 1,000 mls @ 125 mls/hr IV ASDIRECTED [facility] Last Admin: 04/25/17 07:15 Dose: 125 mls/hr Ceftriaxone Sodium 1 gm/ (Sodium Chloride) 50 mls @ 100 mls/hr IV Q24H [facility] Last Admin: 04/25/17 14:53 Dose: 100 mls/hr Sodium Chloride (Normal Saline) 500 mls @ 500 mls/hr IV .BOLUS ONE Stop: 04/24/17 04:44 Last Admin: 04/24/17 03:45 Dose: 500 mls/hr Phytonadione 5 mg/ Sodium (Chloride) 50.5 mls @ 100 mls/hr IV NOW ONE Stop: 04/24/17 07:00 Phytonadione 5 mg/ Sodium (Chloride) 50.5 mls @ 100 mls/hr IV ONETIME ONE Stop: 04/24/17 08:30 Last Admin: 04/24/17 07:48 Dose: 100 mls/hr Sodium Chloride (Normal Saline) 500 mls @ 250 mls/hr IV .BOLUS ONE Stop: 04/24/17 14:10 Last Admin: 04/24/17 12:15 Dose: 250 mls/hr Sodium Chloride (Normal Saline) 500 mls @ 500 mls/hr IV .BOLUS ONE Stop: 04/24/17 20:34 Last Admin: 04/24/17 19:55 Dose: 500 mls/hr Sodium Chloride (Normal Saline) 500 mls @ 250 mls/hr IV .BOLUS ONE Stop: 04/24/17 23:47 Last Admin: 04/24/17 21:50 Dose: 250 mls/hr Sodium Chloride (Normal Saline) 500 mls @ 500 mls/hr IV .BOLUS ONE Stop: 04/25/17 04:18 Last Admin: 04/25/17 03:32 Dose: 500 mls/hr Sodium Chloride (Normal Saline) 250 mls @ 250 mls/hr IV .BOLUS ONE Stop: 04/25/17 14:45 Last Admin: 04/25/17 14:53 Dose: 250 mls/hr Ceftriaxone Sodium 1 gm/ (Sodium Chloride) 50 mls @ 100 mls/hr IV Q24H [facility] Ceftriaxone Sodium 1 gm/ (Sodium Chloride) 50 mls @ 100 mls/hr IV Q24H [facility] Last Admin: 04/26/17 10:05 Dose: 100 mls/hr Lactated Ringer's (Ringers, Lactated) 1,000 mls @ 500 mls/hr IV ASDIRECTED [facility] Stop: 04/26/17 11:01 Last Admin: 04/26/17 10:30 Dose: 500 mls/hr Lactated Ringer's (Ringers, Lactated) 500 mls @ 500 mls/hr IV .BOLUS [facility] Last Admin: 04/26/17 16:10 Dose: 500 mls/hr Levofloxacin/Dextrose 500 mg/ (Premix) 100 mls @ 100 mls/hr IV Q24H [facility] Last Admin: 04/27/17 18:28 Dose: 100 mls/hr Lactated Ringer's (Ringers, Lactated) 1,000 mls @ 250 mls/hr IV ASDIRECTED [facility] Stop: 04/26/17 23:16 Last Admin: 04/26/17 18:01 Dose: 250 mls/hr Lactated Ringer's (Ringers, Lactated) 1,000 mls @ 125 mls/hr IV ASDIRECTED [facility] Last Admin: 04/27/17 16:08 Dose: 125 mls/hr Piperacillin/Tazobactam/ (Dextrose 3.375 gm/ Premix) 50 mls @ 100 mls/hr IV Q6H [facility] Last Admin: 04/28/17 05:16 Dose: 100 mls/hr Sodium Chloride (Normal Saline) 1,000 mls @ 50 mls/hr IV ASDIRECTED [facility] Last Admin: 04/27/17 18:44 Dose: 50 mls/hr Phytonadione 1 mg/ Sodium (Chloride) 50.5 mls @ 100 mls/hr IV ONETIME ONE Stop: 04/28/17 06:49 Last Admin: 04/28/17 06:46 Dose: 100 mls/hr Sodium Chloride (Normal Saline) Confirm Administered Dose 100 mls @ as directed .ROUTE .STK-MED ONE Stop: 04/28/17 06:42 Last Admin: 04/28/17 06:52 Dose: Not Given Methylprednisolone Sodium Succinate (Solu-Medrol) 125 mg IVPUSH ONETIME ONE Stop: 04/23/17 15:01 Last Admin: 04/23/17 15:27 Dose: 125 mg Phytonadione (Aquamephyton) 5 mg PO ONETIME ONE Stop: 04/23/17 15:01 Last Admin: 04/23/17 15:27 Dose: 5 mg Prednisone (Prednisone) 20 mg PO BIDNHALS [facility] Last Admin: 04/25/17 08:22 Dose: 20 mg Warfarin Sodium (Coumadin) 5 mg PO ONETIME ONE Stop: 04/25/17 10:01 Last Admin: 04/25/17 11:32 Dose: 5 mg Warfarin Sodium (Coumadin) 2.5 mg PO ONETIME ONE Stop: 04/26/17 18:01 Last Admin: 04/26/17 18:07 Dose: 2.5 mg - Exam General: Alert, Cooperative, No Acute Distress Lungs: Clear to Auscultation, Normal Respiratory Effort, Decreased Breath Sounds. No: Wheezing Cardiovascular: No Murmurs, Irregular Rhythm, Tachycardia GI/Abdominal Exam: Normal Bowel Sounds, Soft, Non-Tender, No Organomegaly, No Distention Extremities: Pedal Edema Skin: Warm, Dry, Intact - Problem List Review Problem List Initiated/Reviewed/Updated: Yes - My Orders Last 24 Hours: My Active Orders 04/27/17 18:00 Digoxin [Lanoxin] 250 mcg PO DAILY@1300 04/28/17 09:00 Fluconazole/Normal Saline [Diflucan in NS 200 MG/100 ML] 200 mg Premix Bag 1 bag IV Q24H 04/28/17 12:40 Convert IV to Saline Lock [OM.PC] Routine 04/28/17 12:45 Diltiazem [Cardizem] 30 mg PO Q6HR 04/28/17 19:00 Furosemide [Lasix] 20 mg IVPUSH Q12H 04/29/17 05:00 BASIC METABOLIC PANEL,BMP [CHEM] Timed CBC WITH AUTO DIFF [HEME] Timed MAGNESIUM [CHEM] Timed - Plan Plan:: Assessment and plan - Cystitis-no temperature elevation but white blood cell count remains significantly elevated, no evidence of active respiratory infection at the present time. Urine cultures now growing yeast, no other obvious infection present at this time - Discontinue Zosyn and levofloxacin -Fluconazole 200 mg IV daily -Urine culture pending Atrial fibrillation with rapid ventricular response - intermittent elevation in heart rate -Digoxin 0.25 mg by mouth daily -Digoxin level in a.m. -Cardizem 30 mg by mouth twice a day Hypotension-Blood pressures have trended low despite holding diltiazem. No other potential hypotensive medications other than his Flomax. Some of the hypotension may be chronic, related to autonomic insufficiency. Question also possible underlying infection. Blood pressure has been more stable over the past 24 hours FLUID OVERLOAD -Furosemide 20 mg IV every 12 hours Super therapeutic INR - INR is supratherapeutic -Vitamin K 1 mg IV given earlier today -Repeat INR in the morning -Hold warfarin Stage III chronic kidney disease - kidney function at baseline at this time. Alzheimer's dementia without behavioral disturbance -Melatonin at bedtime -Depakote 250 mg by mouth twice a day -Haldol 1 mg IV every 2 hours as needed for agitation Maintenance issues - - DVT prophylaxis - warfarin - GI prophylaxis - PPI - Nutrition - low sodium diet - Mejia catheter - not indicated CODE STATUS - discussed with his daughter Mariella who is his decision maker. She requests that no CPR be done but a short period of intubation would be okay for reversible conditions. Admission justification - This patient will be admitted for inpatient services and is medically appropriate meeting medical necessity for inpatient admission as outlined in my documentation. I reasonably expect the patient will require inpatient services that span a period time over 2 midnights. I reasonably expect this patient to be discharged or transferred within 96 hours after admission to the [facility]. Disposition - anticipate discharge back to the care home after the hospital stay Primary care physician - Dr Sharp
[2017-04-28] MEDS: Digoxin 125 MCG Tab PO SCH (13:20)
[2017-04-28] MEDS: Diltiazem IR 30 MG Tab PO SCH ×2 (13:21→17:32)
--- NOTE | 2017-04-28 15:28 | ECHO ---
REFERRING PRACTITIONER: 1. AO ROOT: 3.66. (NL = 2.0-3.7) 2. AORTIC VALVE EXCURSION: 3. LA: 3.6. CM (NL = 1.9-4.0) 4. RV: 3.18. (NL = .09-2.6) 5. LV HERRING: 4.19. (NL = 3.5-5.7) 6. LV SYST: 3.18. (NL = 2.2-4.3) 7. FRACTIONAL SHORTENING: (8492) 8. EJECTION FRACTION: 45% to 50%. (5075) 9. IVS: 1.1 (NL = 0.6-1.1) 10. LVPW: 1.06 (NL = 0.6 1.1) REPORT: Echocardiogram. INDICATION: Tachycardia and hypotension. By 2D echo, left ventricular function appears to be mildly decreased consistent with estimated ejection fraction of 45% to 50%. Overall this study is of very poor technical quality and very limited, this limits available information and compromises interpretation. Study is insufficient to evaluate for pericardial effusion. There is right ventricular enlargement and right ventricular function appears to be decreased. Other chambers appear to be within normal range for size and is very limited study. There does appear to be some calcification of aortic valve leaflets and annulus without significant impairment of leaflet motion. Other evaluation of valves was insufficient. Doppler and color Doppler exam again was very limited. There is no accurate assessment of right ventricular pressure. There does appear to be some degree of aortic insufficiency, mitral regurgitation and tricuspid regurgitation. IMPRESSION: 1. This study is of very limited technical quality significantly compromising available information and interpretation. 2. Grossly there does appear to be mild decrease in left ventricular function with estimated ejection fraction of 45% to 50%. 3. Right ventricular enlargement with decreased right ventricular function. 4. At least some degree of aortic insufficiency, mitral regurgitation and tricuspid regurgitation. /[id number]
[2017-04-28] MEDS: Furosemide 20 MG/2 ML VIAL IVPUSH SCH (19:58)
[2017-04-28] MEDS: Mirtazapine 15 MG Tab PO SCH (20:41)
[2017-04-28] MEDS: Melatonin 3 MG Tab PO SCH (20:41)
[2017-04-29] MEDS: Mirtazapine 15 MG Tab PO SCH ×3 (00:35→21:28)
[2017-04-29] MEDS: Diltiazem IR 30 MG Tab PO SCH ×10 (01:20→23:45)
[2017-04-29] MEDS: Sennosides 8.6 MG Tab PO SCH ×4 (01:56→21:28)
[2017-04-29] MEDS: Albuterol/Ipratropium 3.0-0.5 MG/3 ML Neb Soln NEB SCH ×4 (07:24→21:25)
[2017-04-29] MEDS: Budesonide 0.5 MG/2 ML Neb Susp INH SCH ×2 (07:24→21:28)
[2017-04-29] MEDS: Divalproex Sodium Delayed-Release 250 MG Tab.CR PO SCH ×4 (07:45→17:40)
[2017-04-29] MEDS: Potassium Chloride 20 MEQ Tab.ER PO SCH ×2 (07:45→07:59)
[2017-04-29] MEDS: Pantoprazole 40 MG Tab.CR PO SCH (07:45)
[2017-04-29] MEDS: Furosemide 20 MG/2 ML VIAL IVPUSH SCH ×2 (07:45→19:54)
[2017-04-29] MEDS: Fluconazole/Normal Saline 200 MG in Premix Bag 1 BAG IV SCH (08:07)
[2017-04-29] MEDS: Dorzolamide/Timolol 2%-0.5% Ophth Soln 10 ML Bottle EYEBOTH SCH ×2 (08:15→21:22)
[2017-04-29] MEDS: Tamsulosin 0.4 MG Cap.ER PO SCH (08:17)
[2017-04-29] MEDS: Aspirin 81 MG Tab.Chew PO SCH (08:17)
[2017-04-29] MEDS: Magnesium Hydroxide 400 MG/5 ML Susp 30 ML Cup PO PRN (14:13)
[2017-04-29] MEDS ORDERED: LORazepam ORAL Concentrate 1MG/0.5ML U/D PO PRN (14:24)
--- NOTE | 2017-04-29 14:32 | PCM.PN ---
- General Info Date of Service: 04/29/17 Functional Status: Reports: Pain Controlled - Review of Systems General: Reports: Weakness Systems Review Comment:: Mr. Truong has reported to nursing staff as well as myself this morning that he feels as though he is dying and does not want further aggressive interventions or treatment. He was very clear today when he expresses to me. He has shown no significant improvement despite current interventions. He will be switched to comfort cares only, medications and interventions not directly related to comfort will be discontinued. - Patient Data Vitals - Most Recent: Last Vital Signs Temp 95.1 F L 04/29/17 10:45 Pulse 50 L 04/29/17 10:45 Resp 24 H 04/29/17 10:45 BP 97/60 04/29/17 10:45 Pulse Ox 100 04/29/17 01:56 Weight - Most Recent: 132 lb 8 oz I&O - Last 24 Hours: Intake & Output 04/28/17 04/29/17 04/29/17 22:59 06:59 14:59 Intake Total 428 350 Output Total 750 300 Balance -322 -300 350 Lab Results Last 24 Hours: Laboratory Results - last 24 hr 04/29/17 04/29/17 04/29/17 Range/Units 05:40 05:40 08:46 WBC 20.5 H (4.5-11.0) K/uL RBC 3.96 L (4.30-5.90) M/uL Hgb 11.8 L (12.0-15.0) g/dL Hct 36.5 L (40.0-54.0) % MCV 92 (80-98) fL MCH 30 (27-31) pg MCHC 32 (32-36) % Plt Count 252 (150-400) K/uL Neut % (Auto) 88 H (36-66) % Lymph % (Auto) 6 L (24-44) % [place] % (Auto) 6 (2-6) % Eos % (Auto) 0 L (2-4) % Baso % (Auto) 0 (0-1) % PT 39.5 H (9.5-12.0) sec INR 3.50 H (0.80-1.20) Sodium 143 (140-148) mmol/L Potassium 4.6 (3.6-5.2) mmol/L Chloride 107 (100-108) mmol/L Carbon Dioxide 25 (21-32) mmol/L Anion Gap 10.8 (5.0-14.0) mmol/L BUN 33 H (7-18) mg/dL Creatinine 1.1 (0.8-1.3) mg/dL Est Cr Clr Drug Dosing 40.32 mL/min Estimated GFR (MDRD) > 60 (>60) Glucose 101 (74-106) mg/dL Calcium 7.6 L (8.5-10.1) mg/dL Magnesium 2.1 (1.8-2.4) mg/dL Digoxin (0.90-2.00) ng/mL 04/29/17 Range/Units 08:47 WBC (4.5-11.0) K/uL RBC (4.30-5.90) M/uL Hgb (12.0-15.0) g/dL Hct (40.0-54.0) % MCV (80-98) fL MCH (27-31) pg MCHC (32-36) % Plt Count (150-400) K/uL Neut % (Auto) (36-66) % Lymph % (Auto) (24-44) % [place] % (Auto) (2-6) % Eos % (Auto) (2-4) % Baso % (Auto) (0-1) % PT (9.5-12.0) sec INR (0.80-1.20) Sodium (140-148) mmol/L Potassium (3.6-5.2) mmol/L Chloride (100-108) mmol/L Carbon Dioxide (21-32) mmol/L Anion Gap (5.0-14.0) mmol/L BUN (7-18) mg/dL Creatinine (0.8-1.3) mg/dL Est Cr Clr Drug Dosing mL/min Estimated GFR (MDRD) (>60) Glucose (74-106) mg/dL Calcium (8.5-10.1) mg/dL Magnesium (1.8-2.4) mg/dL Digoxin 2.15 H (0.90-2.00) ng/mL Fritz Results Last 24 Hours: Microbiology 04/27/17 00:30 Urine Culture - Final Urine, Clean Catch YEAST Med Orders - Current: Current Medications Acetaminophen (Tylenol) 650 mg PO Q4H PRN PRN Reason: Pain (Mild 1-3)/fever Albuterol (Proventil Neb Soln) 2.5 mg NEB Q4H PRN PRN Reason: Shortness Of Breath/wheezing Last Admin: 04/27/17 06:24 Dose: 2.5 mg Albuterol/Ipratropium (Duoneb 3.0-0.5 Mg/3 Ml) 3 ml NEB QIDRT [facility] Last Admin: 04/29/17 10:56 Dose: 3 ml Aspirin (Aspirin) 81 mg PO DAILY [facility] Last Admin: 04/29/17 08:17 Dose: 81 mg Bisacodyl (Dulcolax) 5 mg PO DAILY PRN PRN Reason: Constipation Last Admin: 04/29/17 14:13 Dose: 5 mg Budesonide (Pulmicort) 0.5 mg INH BIDRT [facility] Last Admin: 04/29/17 07:24 Dose: 0.5 mg Digoxin (Lanoxin) 125 mcg PO DAILY@1300 [facility] Diltiazem HCl (Cardizem) 30 mg PO Q6H [facility] Last Admin: 04/29/17 14:17 Dose: 30 mg Divalproex Sodium (Divalproex Sodium) 250 mg PO BIDMEALS [facility] Last Admin: 04/29/17 08:00 Dose: Not Given Dorzolamide/Timolol (Cosopt 2%-0.5% Ophth Soln) 0 ml EYEBOTH BID [facility] Last Admin: 04/29/17 08:15 Dose: 1 drop Furosemide (Lasix) 20 mg IVPUSH Q12H [facility] Last Admin: 04/29/17 07:45 Dose: 20 mg Haloperidol Lactate (Haldol) 1 mg IVPUSH Q2H PRN PRN Reason: Hallucinations Lorazepam (Ativan Oral Concentrate 1mg/0.5 Ml U/D) 0.5 mg PO Q2H PRN PRN Reason: Anxiety Magnesium Hydroxide (Milk Of Magnesia) 30 ml PO Q12H PRN PRN Reason: Constipation Last Admin: 04/29/17 14:13 Dose: 30 ml Melatonin (Melatonin) 9 mg PO BEDTIME [facility] Last Admin: 04/28/17 20:41 Dose: 9 mg Mirtazapine (Remeron) 7.5 mg PO BEDTIME [facility] Last Admin: 04/29/17 00:35 Dose: 7.5 mg Morphine Sulfate (Morphine 10 Mg/0.5 Ml Oral Syringe) 5 mg PO Q1H PRN PRN Reason: Dyspnea Ondansetron HCl (Zofran Odt) 4 mg PO Q6H PRN PRN Reason: Nausea able to take PO Polyethylene Glycol (Miralax) 17 gm PO DAILY PRN PRN Reason: Constipation Last Admin: 04/29/17 09:58 Dose: 17 gm Senna (Senna) 8.6 mg PO BID [facility] Last Admin: 04/29/17 08:19 Dose: Not Given Tamsulosin HCl (Flomax) 0.4 mg PO DAILY [facility] Last Admin: 04/29/17 08:17 Dose: 0.4 mg Discontinued Medications Azithromycin (Zithromax) 500 mg PO DAILY [facility] Last Admin: 04/26/17 08:29 Dose: 500 mg Digoxin (Lanoxin) 250 mcg IVPUSH ONETIME STA Stop: 04/24/17 19:37 Last Admin: 04/24/17 19:55 Dose: 250 mcg Digoxin (Lanoxin) 250 mcg IVPUSH ONETIME ONE Stop: 04/25/17 14:31 Last Admin: 04/25/17 14:31 Dose: 250 mcg Digoxin (Lanoxin) 250 mcg IVPUSH ONETIME STA Stop: 04/26/17 03:48 Last Admin: 04/26/17 04:05 Dose: 250 mcg Digoxin (Lanoxin) 250 mcg PO DAILY@1300 [facility] Last Admin: 04/28/17 13:20 Dose: 250 mcg Diltiazem HCl (Cardizem) 30 mg PO QID [facility] Last Admin: 04/24/17 14:35 Dose: Not Given Diltiazem HCl (Cardizem) 30 mg PO ONETIME ONE Stop: 04/26/17 09:01 Last Admin: 04/26/17 09:05 Dose: 30 mg Diltiazem HCl (Cardizem) 30 mg PO ONETIME ONE Stop: 04/27/17 20:27 Last Admin: 04/27/17 20:43 Dose: 30 mg Enoxaparin Sodium (Lovenox) 40 mg SUBCUT DAILY [facility] Last Admin: 04/24/17 10:40 Dose: 40 mg Furosemide (Lasix) 20 mg IVPUSH NOW ONE Stop: 04/27/17 17:01 Last Admin: 04/27/17 17:18 Dose: 20 mg Furosemide (Lasix) 20 mg IVPUSH NOW ONE Stop: 04/28/17 08:24 Last Admin: 04/28/17 09:33 Dose: 20 mg Ceftriaxone Sodium 1 gm/ (Sodium Chloride) 50 mls @ 100 mls/hr IV Q24H [facility] Last Admin: 04/23/17 13:40 Dose: 100 mls/hr Sodium Chloride (Normal Saline) 500 mls @ 999 mls/hr IV ASDIRECTED [facility] Stop: 04/23/17 14:01 Last Admin: 04/23/17 13:31 Dose: 999 mls/hr Sodium Chloride (Normal Saline) 1,000 mls @ 125 mls/hr IV ASDIRECTED [facility] Last Admin: 04/25/17 07:15 Dose: 125 mls/hr Ceftriaxone Sodium 1 gm/ (Sodium Chloride) 50 mls @ 100 mls/hr IV Q24H [facility] Last Admin: 04/25/17 14:53 Dose: 100 mls/hr Sodium Chloride (Normal Saline) 500 mls @ 500 mls/hr IV .BOLUS ONE Stop: 04/24/17 04:44 Last Admin: 04/24/17 03:45 Dose: 500 mls/hr Phytonadione 5 mg/ Sodium (Chloride) 50.5 mls @ 100 mls/hr IV NOW ONE Stop: 04/24/17 07:00 Phytonadione 5 mg/ Sodium (Chloride) 50.5 mls @ 100 mls/hr IV ONETIME ONE Stop: 04/24/17 08:30 Last Admin: 04/24/17 07:48 Dose: 100 mls/hr Sodium Chloride (Normal Saline) 500 mls @ 250 mls/hr IV .BOLUS ONE Stop: 04/24/17 14:10 Last Admin: 04/24/17 12:15 Dose: 250 mls/hr Sodium Chloride (Normal Saline) 500 mls @ 500 mls/hr IV .BOLUS ONE Stop: 04/24/17 20:34 Last Admin: 04/24/17 19:55 Dose: 500 mls/hr Sodium Chloride (Normal Saline) 500 mls @ 250 mls/hr IV .BOLUS ONE Stop: 04/24/17 23:47 Last Admin: 04/24/17 21:50 Dose: 250 mls/hr Sodium Chloride (Normal Saline) 500 mls @ 500 mls/hr IV .BOLUS ONE Stop: 04/25/17 04:18 Last Admin: 04/25/17 03:32 Dose: 500 mls/hr Sodium Chloride (Normal Saline) 250 mls @ 250 mls/hr IV .BOLUS ONE Stop: 04/25/17 14:45 Last Admin: 04/25/17 14:53 Dose: 250 mls/hr Ceftriaxone Sodium 1 gm/ (Sodium Chloride) 50 mls @ 100 mls/hr IV Q24H [facility] Ceftriaxone Sodium 1 gm/ (Sodium Chloride) 50 mls @ 100 mls/hr IV Q24H [facility] Last Admin: 04/26/17 10:05 Dose: 100 mls/hr Lactated Ringer's (Ringers, Lactated) 1,000 mls @ 500 mls/hr IV ASDIRECTED [facility] Stop: 04/26/17 11:01 Last Admin: 04/26/17 10:30 Dose: 500 mls/hr Lactated Ringer's (Ringers, Lactated) 500 mls @ 500 mls/hr IV .BOLUS [facility] Last Admin: 04/26/17 16:10 Dose: 500 mls/hr Levofloxacin/Dextrose 500 mg/ (Premix) 100 mls @ 100 mls/hr IV Q24H [facility] Last Admin: 04/27/17 18:28 Dose: 100 mls/hr Lactated Ringer's (Ringers, Lactated) 1,000 mls @ 250 mls/hr IV ASDIRECTED [facility] Stop: 04/26/17 23:16 Last Admin: 04/26/17 18:01 Dose: 250 mls/hr Lactated Ringer's (Ringers, Lactated) 1,000 mls @ 125 mls/hr IV ASDIRECTED [facility] Last Admin: 04/27/17 16:08 Dose: 125 mls/hr Piperacillin/Tazobactam/ (Dextrose 3.375 gm/ Premix) 50 mls @ 100 mls/hr IV Q6H [facility] Last Admin: 04/28/17 05:16 Dose: 100 mls/hr Sodium Chloride (Normal Saline) 1,000 mls @ 50 mls/hr IV ASDIRECTED [facility] Last Admin: 04/27/17 18:44 Dose: 50 mls/hr Phytonadione 1 mg/ Sodium (Chloride) 50.5 mls @ 100 mls/hr IV ONETIME ONE Stop: 04/28/17 06:49 Last Admin: 04/28/17 06:46 Dose: 100 mls/hr Sodium Chloride (Normal Saline) Confirm Administered Dose 100 mls @ as directed .ROUTE .STK-MED ONE Stop: 04/28/17 06:42 Last Admin: 04/28/17 06:52 Dose: Not Given Fluconazole/Sodium Chloride (200 mg/ Premix) 100 mls @ 100 mls/hr IV Q24H [facility] Last Admin: 04/29/17 08:07 Dose: 100 mls/hr Methylprednisolone Sodium Succinate (Solu-Medrol) 125 mg IVPUSH ONETIME ONE Stop: 04/23/17 15:01 Last Admin: 04/23/17 15:27 Dose: 125 mg Pantoprazole Sodium (Protonix) 40 mg PO DAILY@0730 [facility] Last Admin: 04/29/17 07:45 Dose: 40 mg Phytonadione (Aquamephyton) 5 mg PO ONETIME ONE Stop: 04/23/17 15:01 Last Admin: 04/23/17 15:27 Dose: 5 mg Potassium Chloride (Klor-Con M20) 20 meq PO DAILY@0800 [facility] Last Admin: 04/29/17 07:59 Dose: Not Given Prednisone (Prednisone) 20 mg PO BIDMEALS [facility] Last Admin: 04/25/17 08:22 Dose: 20 mg Warfarin Sodium (Coumadin) 5 mg PO ONETIME ONE Stop: 04/25/17 10:01 Last Admin: 04/25/17 11:32 Dose: 5 mg Warfarin Sodium (Coumadin) 2.5 mg PO ONETIME ONE Stop: 04/26/17 18:01 Last Admin: 04/26/17 18:07 Dose: 2.5 mg - Exam General: Alert, Cooperative, Mild Distress Lungs: Normal Respiratory Effort, Decreased Breath Sounds. No: Crackles, Rales , Rhonchi, Wheezing Cardiovascular: Regular Rate, No Murmurs, Irregular Rhythm GI/Abdominal Exam: Normal Bowel Sounds, Soft, Non-Tender, No Distention Extremities: Pedal Edema Skin: Warm, Dry, Intact - Problem List Review Problem List Initiated/Reviewed/Updated: Yes - My Orders Last 24 Hours: My Active Orders 04/28/17 19:00 Furosemide [Lasix] 20 mg IVPUSH Q12H 04/29/17 14:24 LORazepam [Ativan ORAL Concentrate 1MG/0.5 ML U/D] 0.5 mg PO Q2H PRN Morphine [Morphine 10 MG/0.5 ML Oral Syringe] 5 mg PO Q1H PRN 04/30/17 13:00 Digoxin [Lanoxin] 125 mcg PO DAILY@1300 - Plan Plan:: Assessment and plan - Comfort cares only-patient has requested that we discontinue aggressive interventions and medical therapy for current problems. He feels as though he is actively dying and wants to be kept comfortable. I reviewed his [place] with his daughter and she is in full agreement with this plan of management. -Morphine as needed for dyspnea and/or pain -Lorazepam as needed for anxiety Cystitis-no temperature elevation but white blood cell count remains significantly elevated, no evidence of active respiratory infection at the present time. Urine cultures now growing yeast, no other obvious infection present at this time - Discontinue fluconazole per patient request Atrial fibrillation with rapid ventricular response - intermittent elevation in heart rate -Digoxin 0.25 mg by mouth daily -Digoxin level in a.m. -Cardizem 30 mg by mouth twice a day Hypotension FLUID OVERLOAD -Discontinue furosemide Super therapeutic INR -Hold warfarin Stage III chronic kidney disease - kidney function at baseline at this time. Palliative care-we'll move to comfort cares only per patient request -Hospice admission after discharge Maintenance issues - - DVT prophylaxis - warfarin - GI prophylaxis - PPI - Nutrition - low sodium diet - Mejia catheter - not indicated CODE STATUS - discussed with his daughter Mariella who is his decision maker. She requests that no CPR be done but a short period of intubation would be okay for reversible conditions. Admission justification - This patient will be admitted for inpatient services and is medically appropriate meeting medical necessity for inpatient admission as outlined in my documentation. I reasonably expect the patient will require inpatient services that span a period time over 2 midnights. I reasonably expect this patient to be discharged or transferred within 96 hours [facility]. Disposition - anticipate discharge back to the half-way tomorrow, hospice admission after discharge Primary care physician - Dr Sharp
[2017-04-29] MEDS: Melatonin 3 MG Tab PO SCH (21:27)
[2017-04-29] MEDS: Morphine 10 MG/0.5 ML Oral Syringe PO PRN (23:54)
[2017-04-30] MEDS: Morphine 10 MG/0.5 ML Oral Syringe PO PRN ×2 (02:13→06:12)
[2017-04-30] MEDS ORDERED: Bisacodyl 10 MG Supp RECTAL PRN (06:00)
[2017-04-30] MEDS: Diltiazem IR 30 MG Tab PO SCH (06:06)
[2017-04-30] MEDS: Albuterol/Ipratropium 3.0-0.5 MG/3 ML Neb Soln NEB SCH ×2 (07:04→10:43)
[2017-04-30] MEDS: Budesonide 0.5 MG/2 ML Neb Susp INH SCH (07:04)
[2017-04-30 11:01] VITALS: BP 79/45
[2017-04-30] MEDS: Sennosides 8.6 MG Tab PO SCH (11:07)
[2017-04-30] MEDS: Dorzolamide/Timolol 2%-0.5% Ophth Soln 10 ML Bottle EYEBOTH SCH (11:07)
[2017-04-30] MEDS: Divalproex Sodium Delayed-Release 250 MG Tab.CR PO SCH (11:07)
[2017-04-30] MEDS: Tamsulosin 0.4 MG Cap.ER PO SCH (11:07)
[2017-04-30] MEDS: Aspirin 81 MG Tab.Chew PO SCH (11:07)
[2017-04-30] MEDS ORDERED: Digoxin 125 MCG Tab PO SCH (13:00)
--- NOTE | 2017-04-30 13:10 | PCM.DCSUM1 ---
Discharge Summary - Hospital Course Brief History: Mr. Truong is an 86-year-old gentleman with a known history of COPD , he was admitted through the emergency department with hypoxia and shortness of breath secondary to COPD exacerbation and underlying bronchitis. - Discharge Data Discharge Date: 04/30/17 Discharge Disposition: DC/Tfer to SNF 03 Condition: Poor - Discharge Diagnosis/Problem(s) (1) Cystitis SNOMED Code(s): 60777674 ICD Code: N30.90 - CYSTITIS, UNSPECIFIED WITHOUT HEMATURIA Status: Acute Current Visit: Yes (2) COPD with exacerbation SNOMED Code(s): 277628911, 318676035 ICD Code: J44.1 - CHRONIC OBSTRUCTIVE PULMONARY DISEASE W (ACUTE) EXACERBATION Status: Acute Current Visit: Yes (3) Acute bronchitis SNOMED Code(s): 20846806 ICD Code: J20.9 - ACUTE BRONCHITIS, UNSPECIFIED Status: Acute Current Visit: Yes Qualifiers: Bronchitis organism: unspecified organism Qualified Code(s): J20.9 - Acute bronchitis, unspecified (4) Atrial fibrillation with rapid ventricular response SNOMED Code(s): 787625756157719 ICD Code: I48.91 - UNSPECIFIED ATRIAL FIBRILLATION Status: Acute Current Visit: Yes (5) Stage III chronic kidney disease SNOMED Code(s): 830641773 ICD Code: N18.3 - CHRONIC KIDNEY DISEASE, STAGE 3 (MODERATE) Status: Chronic Current Visit: Yes (6) Alzheimer's dementia without behavioral disturbance SNOMED Code(s): 43172745 ICD Code: G30.9 - ALZHEIMER'S DISEASE, UNSPECIFIED; F02.80 - DEMENTIA IN OTH DISEASES CLASSD ELSWHR W/O BEHAVRL DISTURB Status: Chronic Current Visit: Yes Qualifiers: Alzheimer's disease onset: late-onset Qualified Code(s): G30.1 - Alzheimer' s disease with late onset; F02.80 - Dementia in other diseases classified elsewhere without behavioral disturbance (7) Palliative care status SNOMED Code(s): 924748533 ICD Code: Z51.5 - ENCOUNTER FOR PALLIATIVE CARE Status: Acute Current Visit: Yes - Patient Summary/Data Hospital Course: Mr. Truong is an 86-year-old gentleman who is admitted through the emergency department after experiencing a few day history of increased shortness of breath , cough, and weakness. On evaluation emergency department there was no evidence of significant infiltrate identified on chest x-ray was felt to have probable COPD exacerbation causing hypoxia and shortness of breath secondary to bronchitis. On admission he was given IV steroids, as well as IV antibiotic therapy with Rocephin and azithromycin. Initially IV fluids were used for hydration and he was also given nebulizer therapy as needed. He was found to have atrial fibrillation with rapid ventricular response which is not a new diagnosis but rate was more elevated than it's been in the past. He was treated with oral diltiazem 30 mg by mouth 36 hours. Hospital course was complicated by ongoing difficulty with tachycardia and episodes of significant hypotension. Initially IV fluids were discontinued the but then restarted because of hypotension and he was treated with bolus of fluids as needed. Cardizem was discontinued because the hypotension and attempt was made to manage the rapid heart rate with use of digoxin. This did improve heart rate but it did not come consistently down within desired range. Because of ongoing hypotension he was reevaluated for source of infection, chest x-ray showed no obvious infiltrate but urinalysis did show evidence of probable infection. Antibiotics were changed because of ongoing hypotension. Urine culture did grow out yeast and fluconazole was added to current regimen. Over the course of his hospital stay he became progressively more weak and experienced decrease in appetite with minimal oral intake. On the day prior to discharge he reported to nursing staff as well as to myself that he felt as though he were dying and did not want further aggressive interventions. I reviewed this request with his daughter who is his healthcare power of kraft digester operator and she accepted his request and plan to proceed with comfort cares only. He was transitioned to sublingual morphine and lorazepam as needed for comfort. Antibiotics were discontinued as well as fluids and other aggressive measures. He will be discharged back to the longterm on comfort cares only, activity will be as tolerated and he will be on a geriatric diet. We'll plan for hospice admission tomorrow at the longterm. - Patient Instructions Diet: Usual Diet as Tolerated Activity: As Tolerated Other/Special Instructions: Hospice admission after discharge. Comfort cares only. - Discharge Plan Prescriptions/Med Rec: LORazepam [Ativan ORAL Concentrate 1MG/0.5 ML U/D] 0.5 mg PO Q2H PRN #10 ml PRN Reason: Anxiety Morphine [Morphine 10 MG/0.5 ML Oral Syringe] 5 mg PO Q1H PRN #10 ml PRN Reason: Pain Home Medications: Home Meds Dorzolamide/Timolol [Cosopt 2%-0.5% Ophth Soln] 2 drop EYEBOTH BID 04/27/14 [ History] Acetaminophen [Tylenol] 650 mg PO ASDIRECTED PRN 04/23/17 [History] Albuterol/Ipratropium [DuoNeb 3.0-0.5 MG/3 ML] 1 vial INH QID 04/23/17 [History] Alum Hydrox/Mag Hydrox/Simeth [Maalox Advanced] 1 unit PO ASDIRECTED PRN [History] Bisacodyl [Biscolax] 10 mg RECTAL ASDIRECTED PRN 04/23/17 [History] Diltiazem HCl [Cardizem] 30 mg PO QID 04/23/17 [History] Magnesium Hydroxide [Milk of Magnesia] 30 mg PO ASDIRECTED PRN 04/23/17 [History ] Mirtazapine [Remeron] 7.5 mg PO DAILY 04/23/17 [History] Sennosides [Senna] 8.6 mg PO BID 04/23/17 [History] Tamsulosin HCl 0.4 mg PO DAILY 04/23/17 [History] LORazepam [Ativan ORAL Concentrate 1MG/0.5 ML U/D] 0.5 mg PO Q2H PRN #10 ml [Rx] Morphine [Morphine 10 MG/0.5 ML Oral Syringe] 5 mg PO Q1H PRN #10 ml 04/30/17 [ Rx] Forms: ED Department Discharge Referrals: PCP,None [Primary Care Provider] - - Patient Data Vitals - Most Recent: Last Vital Signs Temp 96.9 F 04/30/17 10:58 Pulse 43 L 04/30/17 10:58 Resp 20 04/30/17 10:58 BP 79/45 L 04/30/17 10:58 Pulse Ox 95 04/30/17 10:58 Weight - Most Recent: 132 lb 8 oz I&O - Last 24 hours: Intake & Output 04/29/17 04/30/17 04/30/17 22:59 06:59 14:59 Intake Total 200 Output Total 500 Balance -300 Med Orders - Current: Current Medications Acetaminophen (Tylenol) 650 mg PO Q4H PRN PRN Reason: Pain (Mild 1-3)/fever Albuterol (Proventil Neb Soln) 2.5 mg NEB Q4H PRN PRN Reason: Shortness Of Breath/wheezing Last Admin: 04/27/17 06:24 Dose: 2.5 mg Albuterol/Ipratropium (Duoneb 3.0-0.5 Mg/3 Ml) 3 ml NEB QIDRT [facility] Last Admin: 04/30/17 10:43 Dose: 3 ml Aspirin (Aspirin) 81 mg PO DAILY [facility] Last Admin: 04/30/17 11:07 Dose: Not Given Bisacodyl (Dulcolax) 5 mg PO DAILY PRN PRN Reason: Constipation Last Admin: 04/29/17 14:13 Dose: 5 mg Bisacodyl (Dulcolax) 10 mg RECTAL DAILY PRN PRN Reason: Constipation Last Admin: 04/30/17 06:06 Dose: 10 mg Budesonide (Pulmicort) 0.5 mg INH BIDRT [facility] Last Admin: 04/30/17 07:04 Dose: 0.5 mg Digoxin (Lanoxin) 125 mcg PO DAILY@1300 [facility] Diltiazem HCl (Cardizem) 30 mg PO Q6H [facility] Last Admin: 04/30/17 06:06 Dose: Not Given Divalproex Sodium (Divalproex Sodium) 250 mg PO BIDMEALS [facility] Last Admin: 04/30/17 11:07 Dose: Not Given Dorzolamide/Timolol (Cosopt 2%-0.5% Ophth Soln) 0 ml EYEBOTH BID [facility] Last Admin: 04/30/17 11:07 Dose: Not Given Haloperidol Lactate (Haldol) 1 mg IVPUSH Q2H PRN PRN Reason: Hallucinations Lorazepam (Ativan Oral Concentrate 1mg/0.5 Ml U/D) 0.5 mg PO Q2H PRN PRN Reason: Anxiety Last Admin: 04/30/17 07:22 Dose: 0.5 mg Magnesium Hydroxide (Milk Of Magnesia) 30 ml PO Q12H PRN PRN Reason: Constipation Last Admin: 04/29/17 14:13 Dose: 30 ml Melatonin (Melatonin) 9 mg PO BEDTIME [facility] Last Admin: 04/29/17 21:27 Dose: Not Given Mirtazapine (Remeron) 7.5 mg PO BEDTIME [facility] Last Admin: 04/29/17 21:28 Dose: Not Given Morphine Sulfate (Morphine 10 Mg/0.5 Ml Oral Syringe) 5 mg PO Q1H PRN PRN Reason: Dyspnea Last Admin: 04/30/17 06:12 Dose: 5 mg Ondansetron HCl (Zofran Odt) 4 mg PO Q6H PRN PRN Reason: Nausea able to take PO Polyethylene Glycol (Miralax) 17 gm PO DAILY PRN PRN Reason: Constipation Last Admin: 04/29/17 09:58 Dose: 17 gm Senna (Senna) 8.6 mg PO BID [facility] Last Admin: 04/30/17 11:07 Dose: Not Given Tamsulosin HCl (Flomax) 0.4 mg PO DAILY [facility] Last Admin: 04/30/17 11:07 Dose: Not Given Discontinued Medications Azithromycin (Zithromax) 500 mg PO DAILY [facility] Last Admin: 04/26/17 08:29 Dose: 500 mg Digoxin (Lanoxin) 250 mcg IVPUSH ONETIME STA Stop: 04/24/17 19:37 Last Admin: 04/24/17 19:55 Dose: 250 mcg Digoxin (Lanoxin) 250 mcg IVPUSH ONETIME ONE Stop: 04/25/17 14:31 Last Admin: 04/25/17 14:31 Dose: 250 mcg Digoxin (Lanoxin) 250 mcg IVPUSH ONETIME STA Stop: 04/26/17 03:48 Last Admin: 04/26/17 04:05 Dose: 250 mcg Digoxin (Lanoxin) 250 mcg PO DAILY@1300 [facility] Last Admin: 04/28/17 13:20 Dose: 250 mcg Diltiazem HCl (Cardizem) 30 mg PO QID [facility] Last Admin: 04/24/17 14:35 Dose: Not Given Diltiazem HCl (Cardizem) 30 mg PO ONETIME ONE Stop: 04/26/17 09:01 Last Admin: 04/26/17 09:05 Dose: 30 mg Diltiazem HCl (Cardizem) 30 mg PO ONETIME ONE Stop: 04/27/17 20:27 Last Admin: 04/27/17 20:43 Dose: 30 mg Enoxaparin Sodium (Lovenox) 40 mg SUBCUT DAILY [facility] Last Admin: 04/24/17 10:40 Dose: 40 mg Furosemide (Lasix) 20 mg IVPUSH NOW ONE Stop: 04/27/17 17:01 Last Admin: 04/27/17 17:18 Dose: 20 mg Furosemide (Lasix) 20 mg IVPUSH NOW ONE Stop: 04/28/17 08:24 Last Admin: 04/28/17 09:33 Dose: 20 mg Furosemide (Lasix) 20 mg IVPUSH Q12H [facility] Last Admin: 04/29/17 19:54 Dose: Not Given Ceftriaxone Sodium 1 gm/ (Sodium Chloride) 50 mls @ 100 mls/hr IV Q24H [facility] Last Admin: 04/23/17 13:40 Dose: 100 mls/hr Sodium Chloride (Normal Saline) 500 mls @ 999 mls/hr IV ASDIRECTED [facility] Stop: 04/23/17 14:01 Last Admin: 04/23/17 13:31 Dose: 999 mls/hr Sodium Chloride (Normal Saline) 1,000 mls @ 125 mls/hr IV ASDIRECTED [facility] Last Admin: 04/25/17 07:15 Dose: 125 mls/hr Ceftriaxone Sodium 1 gm/ (Sodium Chloride) 50 mls @ 100 mls/hr IV Q24H [facility] Last Admin: 04/25/17 14:53 Dose: 100 mls/hr Sodium Chloride (Normal Saline) 500 mls @ 500 mls/hr IV .BOLUS ONE Stop: 04/24/17 04:44 Last Admin: 04/24/17 03:45 Dose: 500 mls/hr Phytonadione 5 mg/ Sodium (Chloride) 50.5 mls @ 100 mls/hr IV NOW ONE Stop: 04/24/17 07:00 Phytonadione 5 mg/ Sodium (Chloride) 50.5 mls @ 100 mls/hr IV ONETIME ONE Stop: 04/24/17 08:30 Last Admin: 04/24/17 07:48 Dose: 100 mls/hr Sodium Chloride (Normal Saline) 500 mls @ 250 mls/hr IV .BOLUS ONE Stop: 04/24/17 14:10 Last Admin: 04/24/17 12:15 Dose: 250 mls/hr Sodium Chloride (Normal Saline) 500 mls @ 500 mls/hr IV .BOLUS ONE Stop: 04/24/17 20:34 Last Admin: 04/24/17 19:55 Dose: 500 mls/hr Sodium Chloride (Normal Saline) 500 mls @ 250 mls/hr IV .BOLUS ONE Stop: 04/24/17 23:47 Last Admin: 04/24/17 21:50 Dose: 250 mls/hr Sodium Chloride (Normal Saline) 500 mls @ 500 mls/hr IV .BOLUS ONE Stop: 04/25/17 04:18 Last Admin: 04/25/17 03:32 Dose: 500 mls/hr Sodium Chloride (Normal Saline) 250 mls @ 250 mls/hr IV .BOLUS ONE Stop: 04/25/17 14:45 Last Admin: 04/25/17 14:53 Dose: 250 mls/hr Ceftriaxone Sodium 1 gm/ (Sodium Chloride) 50 mls @ 100 mls/hr IV Q24H [facility] Ceftriaxone Sodium 1 gm/ (Sodium Chloride) 50 mls @ 100 mls/hr IV Q24H [facility] Last Admin: 04/26/17 10:05 Dose: 100 mls/hr Lactated Ringer's (Ringers, Lactated) 1,000 mls @ 500 mls/hr IV ASDIRECTED [facility] Stop: 04/26/17 11:01 Last Admin: 04/26/17 10:30 Dose: 500 mls/hr Lactated Ringer's (Ringers, Lactated) 500 mls @ 500 mls/hr IV .BOLUS [facility] Last Admin: 04/26/17 16:10 Dose: 500 mls/hr Levofloxacin/Dextrose 500 mg/ (Premix) 100 mls @ 100 mls/hr IV Q24H [facility] Last Admin: 04/27/17 18:28 Dose: 100 mls/hr Lactated Ringer's (Ringers, Lactated) 1,000 mls @ 250 mls/hr IV ASDIRECTED [facility] Stop: 04/26/17 23:16 Last Admin: 04/26/17 18:01 Dose: 250 mls/hr Lactated Ringer's (Ringers, Lactated) 1,000 mls @ 125 mls/hr IV ASDIRECTED [facility] Last Admin: 04/27/17 16:08 Dose: 125 mls/hr Piperacillin/Tazobactam/ (Dextrose 3.375 gm/ Premix) 50 mls @ 100 mls/hr IV Q6H [facility] Last Admin: 04/28/17 05:16 Dose: 100 mls/hr Sodium Chloride (Normal Saline) 1,000 mls @ 50 mls/hr IV ASDIRECTED [facility] Last Admin: 04/27/17 18:44 Dose: 50 mls/hr Phytonadione 1 mg/ Sodium (Chloride) 50.5 mls @ 100 mls/hr IV ONETIME ONE Stop: 04/28/17 06:49 Last Admin: 04/28/17 06:46 Dose: 100 mls/hr Sodium Chloride (Normal Saline) Confirm Administered Dose 100 mls @ as directed .ROUTE .STK-MED ONE Stop: 04/28/17 06:42 Last Admin: 04/28/17 06:52 Dose: Not Given Fluconazole/Sodium Chloride (200 mg/ Premix) 100 mls @ 100 mls/hr IV Q24H [facility] Last Admin: 04/29/17 08:07 Dose: 100 mls/hr Methylprednisolone Sodium Succinate (Solu-Medrol) 125 mg IVPUSH ONETIME ONE Stop: 04/23/17 15:01 Last Admin: 04/23/17 15:27 Dose: 125 mg Pantoprazole Sodium (Protonix) 40 mg PO DAILY@0730 [facility] Last Admin: 04/29/17 07:45 Dose: 40 mg Phytonadione (Aquamephyton) 5 mg PO ONETIME ONE Stop: 04/23/17 15:01 Last Admin: 04/23/17 15:27 Dose: 5 mg Potassium Chloride (Klor-Con M20) 20 meq PO DAILY@0800 [facility] Last Admin: 04/29/17 07:59 Dose: Not Given Prednisone (Prednisone) 20 mg PO BIDMEALS [facility] Last Admin: 04/25/17 08:22 Dose: 20 mg Warfarin Sodium (Coumadin) 5 mg PO ONETIME ONE Stop: 04/25/17 10:01 Last Admin: 04/25/17 11:32 Dose: 5 mg Warfarin Sodium (Coumadin) 2.5 mg PO ONETIME ONE Stop: 04/26/17 18:01 Last Admin: 04/26/17 18:07 Dose: 2.5 mg *Q Meaningful Use (DIS) - VTE *Q VTE Criteria *Q: - Stroke *Q Stroke Criteria *Q: - AMI *Q AMI Criteria *Q:
== END 2017-04-30 14:15 | DRG 191 ==
LOC: JP.ED 11:35 → JP.MS 13:34
PROVIDERS: ADMIT Internal Medicine; ATTEND Hospitalist
DX: J44.0 Chronic obstructive pulmonary disease with (acute) lower respiratory infection (principal); I50.20 Unspecified systolic (congestive) heart failure; J20.9 Acute bronchitis, unspecified; J44.1 Chronic obstructive pulmonary disease with (acute) exacerbation; I48.2 Chronic atrial fibrillation; Z79.01 Long term (current) use of anticoagulants; G30.1 Alzheimer's disease with late onset; F02.80 Dementia in other diseases classified elsewhere, unspecified severity, without behavioral disturbance, psychotic disturbance, mood disturbance, and anxiety; Z99.81 Dependence on supplemental oxygen; R09.02 Hypoxemia; N18.3 Chronic kidney disease, stage 3 (moderate); R79.1 Abnormal coagulation profile; I50.9 Heart failure, unspecified; R06.02 Shortness of breath; R00.0 Tachycardia, unspecified; Z66 Do not resuscitate; Z51.5 Encounter for palliative care; N30.90 Cystitis, unspecified without hematuria; I95.9 Hypotension, unspecified; H40.9 Unspecified glaucoma; K59.09 Other constipation; K21.9 Gastro-esophageal reflux disease without esophagitis; N42.9 Disorder of prostate, unspecified; Z79.82 Long term (current) use of aspirin; R82.79 Other abnormal findings on microbiological examination of urine
CPT/HCPCS: 36600; 71010 ×2; 80053; 82803; 84484; 85025; 85610; 99285 ×2; J7040; 36415; 80048; 80162; 81001; 83735; 85027; 87077; 87086; 93306; 93306-26; 94640; 94640-76; 96365; 97162-GP; A9270-GY; J0696; J1160; J1450; J1650; J1940; J1956; J2543; J2930; J3430; J7050; J7120; J7620